=== PATIENT | female | born 1970 | race Caucasian/White ===

== ENCOUNTER 2022-05-02 15:09 | Outpatient (CLI) | payer OTHER, SELFPAY ==
--- NOTE | ~2022-05-02 | MM_ITS ---
EXAMINATION: MM screening jimmy BI w radha HISTORY: Screening mammogram TECHNIQUE: Craniocaudal and mediolateral oblique 3-D tomosynthesis images were obtained and synthetic 2-D images were generated. CAD analysis was submitted and interpreted. COMPARISON: No prior mammogram is available for comparison at this institution. BREAST PARENCHYMAL COMPOSITION: The breasts are almost entirely fatty. FINDINGS: There is no evidence of suspicious mass, calcification, or architectural distortion to sugg est malignancy in either breast. There has been no suspicious interval change. IMPRESSION: 1. No mammographic evidence of malignancy. 2. Recommend routine screening mammography in one year. BI-RADS Category 1: Negative Reviewed, dictated and finalized at location A.
== END 2022-05-02 15:10 | disposition home or self-care (01) ==
PROVIDERS: PCP Nurse Practitioner Family; Visit Provider Obstetrics & Gynecology
DX: Z12.31 Encounter for screening mammogram for malignant neoplasm of breast (principal)
CPT/HCPCS: 77063; 77067

== ENCOUNTER 2024-07-26 09:04 | Outpatient (CLI) | payer OTHER, SELFPAY ==
--- NOTE | ~2024-07-26 | MM_ITS ---
EXAMINATION: MM screening jimmy BI w radha HISTORY: Screening TECHNIQUE: Craniocaudal and mediolateral oblique 3-D tomosynthesis images were obtained and synthetic 2-D images were generated. CAD analysis was submitted and interpreted. COMPARISON: Comparison to multiple prior studies sequentially, with oldest reviewed study dated 01/2022. BREAST PARENCHYMAL COMPOSITION: Dense: The breasts are heterogeneously dense, which may obscure small masses FINDINGS: There is no evidence of suspicious mass, calcification, or architectural distortion to sugg est malignancy in either breast. There has been no suspicious interval change. IMPRESSION: 1. No mammographic evidence of malignancy. 2. Recommend routine screening mammography in one year. BI-RADS Category 1: Negative Reviewed, dictated and finalized at location B.
== END 2024-07-26 09:05 | disposition home or self-care (01) ==
LOC: ANHIMG 09:06
PROVIDERS: PCP Nurse Practitioner Family; Visit Provider Obstetrics & Gynecology
DX: Z12.31 Encounter for screening mammogram for malignant neoplasm of breast (principal)
CPT/HCPCS: 77063; 77067

== ENCOUNTER 2025-09-20 08:11 | Outpatient (CLI) | payer OTHER, SELFPAY ==
--- NOTE | ~2025-09-20 | MM_ITS ---
EXAMINATION: MM screening jimmy BI w radha HISTORY: Screening TECHNIQUE: Craniocaudal and mediolateral oblique 3-D tomosynthesis images were obtained and synthetic 2-D images were generated. CAD analysis was submitted and interpreted. COMPARISON: 07/26/2024 BREAST PARENCHYMAL COMPOSITION: Dense: The breasts are heterogeneously dense, which may obscure small masses FINDINGS: There is no evidence of suspicious mass, calcification, or architectural distortion to suggest malignancy in either breast. There has been no suspicious interval change. IMPRESSION: 1. No mammographic evidence of malignancy. 2. Recommend routine screening mammography in one year. BI-RADS Category 1: Negative Reviewed, dictated and finalized at location O.
--- OUTSIDE RECORDS SUMMARY | 2025-09-20 08:26 | XMS_ITS | Clinical Summary ---
Author Organization [facility] Medical [facility] Building A Address [address] [place] [address] Care Team Providers Care Combine Inspector Name Role Phone Carmel Colindres NP Primary Care Provider [phone] Carmel Colindres NP Unavailable [phone] Jenae Bardales Unavailable [phone] Allergies Active Allergy Reactions Criticality Noted Date Comments Sulfasalazine Rash Medium 08/28/2020 Medications hydrOXYchloro QUINE (PLAQUENIL) 200 mg tabletIndicat ions:Rheumato id Arthritis Take 1 tablet (200 mg total) by mouth 2 (two) times a day 07/14/20 22 Active tiZANidine (ZANAFLEX) 4 mg tablet Take 1 tablet (4 mg total) by mouth nightly at bedtime. 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 05/21/20 22 Active loratadine (CLARITIN) 10 mg tablet Take 1 tablet (10 mg total) by mouth every morning 08/01/20 22 Active triamcinolone (KENALOG) 0.1 % creamIndicati ons:Psoriasis Apply 1 g topically as needed for rash 09/27/20 19 Active inFLIXimab-ab da (Renflexis) 100 mg injection Infuse 70 mL (700 mg total) into a venous catheter every 8 (eight) weeks Active cyanocobalami n (Vitamin B-12) 500 mcg tabletIndicat ions:Preventi on of Vitamin B12 Deficiency Take 1 tablet (500 mcg total) by mouth daily Start post Surgery 90 tablet 3 08/27/20 23 Active magnesium gluconate (Mag-G) 500 mg (27 mg elemental) tablet Take 2 tablets (1,000 mg total) by mouth daily Active ergocalcifero l (VITAMIN D) 50,000 unit capsule Take 1 capsule (50,000 Units total) by mouth daily Active calcium carbonate-vit tang D3 (Oysco 500/D) 1,250mg (500mg elemental) - 5 mcg (200 units) per tablet Take 1 tablet by mouth 3 (three) times a day Active ascorbic acid (VITAMIN C) 250 mg tablet Take 4 tablets (1,000 mg total) by mouth daily Active vitamin E 400 unit capsule Take 0.67 capsules (268 Units total) by mouth daily Active venlafaxine XR (EFFEXOR-XR) 37.5 mg 24 hr capsule Take 1 capsule (37.5 mg total) by mouth daily 06/30/20 24 Active multivitamin tabletIndicat ions:Vitamin Deficiency Prevention Take 2 tablets by mouth daily 60 tablet 11 11/29/20 24 Active norethindrone (MICRONOR) 0.35 mg tablet 12/19/19 25 Active FeroSuL 325 mg (65 mg iron) tablet 03/16/20 25 Active zinc gluconate 50 mg tablet Take 1 tablet (50 mg total) by mouth daily 30 tablet 11 04/07/20 25 026 Active famotidine (PEPCID) 20 mg tablet Take 1 tablet (20 mg total) by mouth 2 (two) times a day 180 tablet 08/26/20 25 025 Active methotrexate 2.5 mg tabletIndicat ions:Rheumato id Arthritis Take 4 tablets (10 mg total) by mouth every 7 days Friday08/02/20 22 025 Discontinued ondansetron (ZOFRAN) 4 mg tabletIndicat ions:Preventi on of Post-Operativ e Nausea and Vomiting Take 1 tablet (4 mg total) by mouth every 6 (six) hours as needed for nausea or vomiting 30 tablet 1 07/29/20 24 025 Discontinued senna-docusat e (PERICOLACE) 8.6-50 mg 1-2 times daily as needed for constipation 60 tablet 1 07/29/20 24 025 Discontinued HYDROcodone-a cetaminophen (NORCO) 5-325 mg per tabletIndicat ions:Pain Take 1 tablet by mouth every 6 (six) hours as needed for pain 20 tablet 03/17/20 25 025 Discontinued d-mannose 500 mg capsule Take 3 tablets by mouth 3 (three) times a day 025 Discontinued famotidine (PEPCID) 20 mg tablet Take 1 tablet (20 mg total) by mouth 2 (two) times a day 180 tablet 04/11/20 25 025 Discontinued(R elba) Hospital, Clinic, or Other Facility Administered Medication Ordered Dose Route Frequency Start Date End Date Status lidocaine (XYLOCAINE) 20 mg/mL (2 %) injection 3 mLIndications:Admini stration of Local Anesthesia 3 mL One-Time Injection 09/06/2025 5 Ended methylPREDNISolone acetate (DEPO-medrol) injection 80 mgIndications:Primar y osteoarthritis of left knee 80 mg intra-artic One-Time Injection 09/06/2025 5 Ended Active Problems Problem Noted Date Diagnosed Date Status post bariatric surgery 03/23/2025 S/P total knee arthroplasty, right 07/28/2024 Assessment & Plan (09/06/2025 1:36 PM CDT): Primary osteoarthritis of right knee 07/13/2024 Encounter for preoperative a ssessment for noncoronary cardiac surgery 06/30/2024 Hyperparathyroidism 06/02/2023 Severe obstructive sleep apnea 04/13/2023 Overview (07/24/2024): - HST (): AHI was 35.1 with O2 yoel of 69% - HST (07/22/24): AHI was 10.8 with O2 yoel of 86% - DME: [facility] Assessment & Plan (07/08/2024 1:10 PM CDT): 1. Chronic, stable 2. Will repeat patient's home sleep test in the setting of 100 lb weight loss after bariatric surgery to determine if she still requires a CPAP Assessment & Plan (06/11/2023 12:00 PM CDT): 1. Chronic, improving 2. She will try out the new mask to see if she tolerates it better and it does not leak Assessment & Plan (04/16/2023 4:43 PM CDT): 1. Chronic, Poorly-controlled 2. Reviewed sleep study results 3. Discussed treatment options 4. Patient decided on CPAP therapy 5. Will place order RBBB 02/24/2023 Psoriatic arthritis 08/09/2022 Hypercalcemia 08/09/2022 Assessment & Plan (02/06/2023 3:53 PM PAYABLE REPRESENTATIVE): Chronic hypercalcemia with high PTH Labs on 01/23/23 Calcium 11.3. PTH 178 GFR 57 Vitamin D of 23 this is most probably primary hyperparathyroidism. Plan: The labs and possible diagnosis reviewed and explained to patient. We will confirm diagnosis with urine collection for calcium I will refer patient for surgical consultation - parathyroidectomy after we obtain test results. stay off vitamin D and any calcium supplements. Patient understands and agrees with above plan. Assessment & Plan (08/09/2022 12:10 PM CDT): Chronic with last level of 11.0 on 08/02/22 Her GFR is low at 32 PTH high at 113 This could be caused by - CKD - effect of HCTZ - dehydration - or hyperparathyroidism. Plan: The labs and possible diagnosis reviewed and explained to patient. I'm not able to pin point hte diagnosis due to multiple factors involved. I suggest that she stops vitamin D and any calcium supplements. She will discuss with her PCP if she can get off HCTZ. Patient will work on weight loss and improve kidney functions Her calcium and kidney functions can be monitored for now. Seropositive rheumatoid arthritis 02/25/2022 Assessment & Plan (07/08/2024 1:10 PM CDT): 1. Chronic, stable 2. Discussed how treatment underlying sleep apnea can improve her arthritis 3. She will continue hydroxychloroquine and infliximab Hypertension 02/03/2016 Overview (03/07/2017): Hypertension Assessment & Plan (06/11/2023 12:00 PM CDT): 1. Chronic, well controlled 2. Discussed her routine use of her CPAP can help improve her blood pressure 3. She will continue lisinopril and furosemide Assessment & Plan (04/16/2023 4:43 PM CDT): - Chronic, Blood pressure is well-controlled - Discussed how routine use of a CPAP machine can help control BP - Continue lisinopril and furosemide Assessment & Plan (03/25/2023 8:44 AM CDT): 1. Chronic, well controlled 2. Discussed how diagnosis of suspected underlying sleep apnea and treatment of it can improve her blood pressure 3. She will continue lisinopril for now Resolved Problems Problem Noted Date Diagnosed Date Resolved Date BMI 39.0-39.9,adult 03/17/2024 03/23/20 25 Morbid (severe) obesity due to excess calories 09/12/2023 12/16/2023 BMI 60.0-69.9, adult 07/17/2023 024 Encounter for preoperative a ssessment for noncoronary cardiac surgery 02/24/2023 04/23/2023 Morbid obesity with BMI of 50.0-59.9, adult 01/23/2023 12/16/2023 Stage 3b chronic kidney disease 08/09/2022 07/15/2023 Assessment & Plan (08/09/2022 12:12 PM CDT): Chronic , multifactorial - continue BP meds per PCP - continue to monitor Class 3 severe obesity due t o excess calories with serious comorbidity and body mass index (BMI) greater than or equal to 70 in adult 08/09/2022 01/23/2023 Assessment & Plan (08/09/2022 12:13 PM CDT): Contributing to her medical problems - patient will be working on getting bariatric surgery in the near future. Encounters Date Type Department Care Team Description 09/16/2025 9:30 AM CDT Therapy [facility] [place] [address] [place] [address] Mireya Trimble PT Presence of right artificial knee joint; Chronic pain of right knee 09/16/2025 Plan of Care Documentation [facility] [place] [address] [place] [address] 09/06/2025 10:15 AM CDT Office Visit [facility] [address] [place] [phone] Jenae Bardales PA Primary osteoarthritis of left knee (Primary Dx); Patellofemoral arthralgia of right knee; S/P total knee arthroplasty, right; Chronic pain of right knee 07/01/2025 11:00 AM CDT Office Visit [facility] at [address] [place] [id number] Michelle Arenas MD RBBB (Primary Dx); Primary hypertension; BMI 60.0-69.9, adult (HCC) from Last 3 Months Immunizations Immunization Administration Dates Next Due Tetanus toxoid, adsorbed 06/30/2007 Surgical History Surgery Date Site/Laterality Comments TONSILLECTOMY WISDOM TOOTH EXTRACTION UPPER GASTROINTESTINAL ENDOSCOPY 01/29/2023 - 02/28/2023 THYROIDECTOMY, PARTIAL 07/01/2023 - 07/31/2023 PARATHYROIDECTOMY 07/01/2023 - 07/31/2023 GASTROPLASTY DUODENAL SWITCH with removal of gallbladder and hernia Medical History Medical History Date Comments Hypertension Anemia 2019(?) Arthritis 2019(?) Female infertility 1998 Joint pain 1992 Chronic kidney disease 2020(?) Low back pain 2007(?) Morbid obesity (HCC) 1995(?) Obesity 1985 Urinary incontinence 2019(?) Vitamin D deficiency 2020(?) Hyperparathyroidism Sleep apnea Motion sickness Cancer (HCC) Thyroid cancer Anxiety RA (rheumatoid arthritis) Seizure (HCC) parient stated h ad 1 when she was 5 Family History Medical History Relation Name Comments Asthma Father Cecilio Asthma; COPD Father Cecilio Hypertension Father Cecilio Hypertension; Obesity Father Cecilio Other Father Cecilio Alive and well; Stroke Father Cecilio Sleep apnea Father's Brother Isacc Depression Maternal Grandmother Gisele Diabetes Maternal Grandmother Gisele Liver disease Mother Latonya Liver disease; Obesity Mother Latonya Other Mother Latonya autoimmune dise ase; Cause of : autoimmune disease Mental illness Mother's Sister Sumi Depression Paternal Grandfather Flash Stroke Paternal Grandfather Flash Cancer Paternal Grandmother Pascale Anesthesia problems Sister Maureen delayed emergence - no ICU admission Obesity Sister Maureen Sleep apnea Sister Maureen Ramirez Hypertension Neg Hx Malig Hyperthermia Neg Hx Pseudochol deficiency Neg Hx Relation Name Status Comments Father Cecilio Barone Father's Brother Isacc Maternal Grandmother Gisele Mother Latonya (Age 62) Mother's Sister Sumi Paternal Grandfather Flash Paternal Grandmother Pascale Reddy Social History Tobacco Use Types Packs/Day Years Used Date Smoking Tobacco: Former Cigarettes Q uit: 1999 Passive Smoke Exposure: Past Smokeless Tobacco: Never Tobacco Cessation:Counseling Given: Not Answered Alcohol Use Standard Drinks/Week Comments No 0 (1 standard drink = 0.6 oz pur e alcohol) [facility] Utilities Answer Date Recorded In the past 12 months has e [employer], gas, oil, or water [employer] threatened to shut off services in your home? No 07/29/2024 Humiliation, Afraid, Rape, and Kick questionnair e Answer Date Recorded Within the last year, have y ou been afraid of your partner or ex-partner? No 07/29/2024 Within the last year, have y ou been humiliated or emotionally abused in other ways by your partner or ex-partner? No Within the last year, have y ou been kicked, hit, slapped, or otherwise physically hurt by your partner or ex-partner? No 07/29/2024 Within the last year, have y ou been raped or forced to have any kind of sexual activity by your partner or ex-partner? No 07/29/2024 Social Connection and Isolation Panel Answer Date Recorded In a typical week, how many times do you talk on the phone with family, friends, or neighbors? More than three times a week 07/29/2024 How often do you get togethe r with friends or relatives? More than three times a week 07/29/2024 How often do you attend [facility] or [facility] services? More than 4 times per year 07/29/2024 Do you belong to any clubs o r organizations such as mu-ism groups, unions, fraternal or athletic groups, or school groups? Yes 07/29/2024 How often do you attend meet ings of the clubs or organizations you belong to? More than 4 times per year 07/29/2024 Are you , , di vorced, , never , or living with a partner? 07/29/2024 AUDIT-C Answer Date Recorded Q1: How often do you have a drink containing alc ohol? Monthly or less 03/23/2025 Q2: How many drinks containi ng alcohol do you have on a typical day when you are drinking? 1 or 2 03/23/2025 Q3: How often do you have si x or more drinks on one occasion? Never 03/23/2025 Overall Financial Resource Strain (CARDIA) Answe r Date Recorded How hard is it for you to pa y for the very basics like food, housing, medical care, and heating? Not hard at all 07/29/2024 PHQ-2 Answer Date Recorded PHQ-2 Total Score (If total score is 3 or more points, staff should administer the PHQ-9) 1 07/29/2024 [facility] - Occupational Stress Questionnaire Answer Date Recorded Do you feel stress - tense, restless, nervous, or anxious, or unable to sleep at night because your mind is troubled all the time - these days? Only a little 07/29/2024 Exercise Vital Sign Answer Date Recorde d On average, how many days pe r week do you engage in moderate to strenuous exercise (like a brisk walk)? 2 days 07/29/2024 On average, how many minutes do you engage in exercise at this level? 20 min 07/29/2024 Hunger Vital Sign Answer Date Recorded Within the past 12 months, y ou worried that your food would run out before you got the money to buy more. Never true 07/29/20 24 Within the past 12 months, t he food you bought just didn't last and you didn't have money to get more. Never true 07/29/2024 PRAPARE - Transportation Answer Date Re corded In the past 12 months, has l ack of transportation kept you from medical appointments or from getting medications? No 07/02 In the past 12 months, has l ack of transportation kept you from meetings, work, or from getting things needed for daily living? No 07/29/2024 PHQ-9 Answer Date Recorded PHQ-9 Total Score 1 07/29/2024 Housing Stability Vital Sign Answer Josh e Recorded In the last 12 months, was t here a time when you were not able to pay the mortgage or rent on time? No 07/29/2024 In the past 12 months, how m any times have you moved where you were living? 0 07/29/2024 At any time in the past 12 m [facility], were you homeless or living in a mcc (including now)? No 07/29/2024 Personal Safety Answer Date Recorded Have you ever been in or are you currently in a harmful physical or emotional relationship or is someone making you feel afraid or unsafe? Denies 07/28/2024 Comments No Sex and Gender Information Value Date Recorded Sex Assigned at Not on file Legal Sex Female 1:37 AM PAYABLE REPRESENTATIVE Gender Identity Not on file Sexual Orientation Not on file Obstetrics History Last Filed Vital Signs Vital Sign Reading Time Taken Comments Blood Pressure 131/80 09/06/2025 10:24 AM CDT Pulse 55 09/06/2025 10:24 AM CDT Temperature 36.8 C (98.3 F) 03/25/2025 12:49 PM CDT Respiratory Rate 18 03/25/2025 12:49 PM CDT Oxygen Saturation 96% 03/25/2025 12:49 PM CDT Inhaled Oxygen Concentration - - Weight 84.8 kg (187 lb) 09/06/2025 10:24 AM CDT Height 165.1 cm (5' 5) 09/06/2025 10:24 AM CDT Body Mass Index 31.12 09/06/2025 10:24 AM CDT Plan of Treatment Health Maintenance Due Date Last Done Comments Cervical Cancer Screening 1968 Colon Cancer Screening-Colonoscopy 1968 Hepatitis C Screening 1968 Hepatitis B Screening 1986 Regular Well Visit/Exam 18-64 1986 Pneumococcal vaccine <65 (1 of 2 - PCV) 1987 Breast Cancer Screening-Mammogram 04/15/2020 019 Depression Screening 07/29/2025 07/29/2024 Covid-19 Vaccine (2024-2 6 season) 2025 05/04/2022, 11/02/2021, 02/16/2021, Additional history exists Influenza Vaccine (#1) 2025 , 08/28/2023, 11/11/2022, Additional history exists DTaP/Tdap/Td Vaccine (4 - Td or Tdap) 07/20/2029 07/20/2019, 06/30/2007, 05/06/2007 Zoster Vaccine Completed 07/17/2022, 05/04/2022 Medical Devices Implanted Type Area Abatement Worker Device Identifier Shelf Expiration Date Model / Serial / Lot [employer] Attune Cruciate Retain Cementless Knee Right 5 Component Femoral [id number] - [id number] Implanted:Qty: 1 on 07/28/2024 by Ney Lozoya MD at [facility] Right: Knee [employer] [id number] 11/30/2032 [id number] / / [id number] [employer] Attune Fb Tib Base Sz 5 Por [id number] - [id number] Implanted:Qty: 1 on 07/28/2024 by Ney Lozoya MD at [facility] Right: Knee [employer] [id number] 05/30/2034 [id number] / / [id number] [employer] Insert Tibial Knee Fixed Rm Posterior Stabilized Attune 12mm Size 5 Polyethylene [id number] - [id number] Implanted:Qty: 1 on 07/28/2024 by Ney Lozoya MD at [facility] Right: Knee [employer] [id number] 08/30/2030 [id number] / / [id number] Procedures Procedure Name Priority Date/Time Associated Diagnosis Comments TX ARTHROCENTESIS ASPIR&/INJ MAJOR JT/BURSA W/O US Routine 09/06/2025 10:15 AM CDT Primary osteoarthritis of left knee from Last 3 Months Results * TX ARTHROCENTESIS ASPIR&/INJ MAJOR JT/BURSA W/O US (09/06/2025 10:15 AM CDT) Jenae Flores PA - 09/06/2025 10:15 AM CDT Jenae Bardales PA 09/06/2025 1:36 PM Large Joint (Hip, Knee, Shoulder) Injection: L knee Performed by: Jenae Bardales PA Authorized by: Jenae Bardales PA Large Joint Injection/Aspiration: Consent Given by: Patient Site marked: the procedure site was marked Verbal consent obtained: Yes Supporting Documentation: Indications: Pain Procedure Details: Location: Knee Site: L knee Prep: patient was prepped and draped in usual sterile fashion Needle Size: 22 G Approach: Anterolateral Ultrasound guided: No Fluroscopic guidance: No Medications: 3 mL lidocaine 20 mg/mL (2 %); 80 mg methylPREDNISolone acetate 80 mg/mL Patient tolerance: Patient tolerated the procedure well with no immediate complications Jenae YADAV IN CLINIC/BEDSIDE ORDER ALON Final Result from Last 3 Months Insurance [facility] Advance Directives For more information, please contact: [phone] * Full Code (Latest Code Status on File) Date Activated Date Inactivated Comments 07/28/2024 1:53 PM 07/29/2024 7:07 PM * Full Code Date Activated Date Inactivated Comments 09/12/2023 3:33 PM 09/14/2023 5:28 PM * Full Code Date Activated Date Inactivated Comments 07/23/2023 2:55 PM 07/25/2023 5:45 PM Care Teams Combine Inspector Relationship Specialty Start Date End Date Carmel Colindres NP [address] [place] [address] PCP - General Nurse Practitioner 02/18/23 Carmel Colindres NP [address] [place] [address] Nurse Practitioner 02/18/23 Jenae Bardales PA [address] [facility] [address] [address] Physician Weatherization Administrator Orthopedic Surgery 07/29/24
--- OUTSIDE RECORDS SUMMARY | 2025-09-20 08:26 | XMS_ITS | Data Portability ---
[facility] Address [address] [place] [address] Care Team Providers Care Infrastructure Analyst Name Role Phone CARMEL HILTON Primary Care Provider Unavailabl e Assessment No assessment recorded. 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-C Not available Not available Not available Lab urinaly sis, dipstic k 2023 024 In-Office Order, Internal Use Only DO Not Attach Compendium DO Not Attach Compendium, Do Not Delete/merge, [id number] 11/16/2024 12:08:35 culture , urine 2023 024 [facility], [address] [facility] [place], [address], 11/19/2024 03:08:[address] referra l 2024 025 nestor Clement MD, 1 [facility] , [address], [place], [address], 08/10/2025 11:15:59 plastic surgeon referra l 2023 024 nestor Friend MD, [address] [place], [address], 03/21/2025 14:48:08 Procedures None recorde d. Surgeries None recorde d. Imaging None recorde d. Medication Orders nidhi godwin ER 37.5 mg capsule ,extend ed release 24 hr 2024 025 [facility][id number], [address], [place], [place], [id number], 06/15/2025 15:54:01 venlafa xine ER 37.5 mg capsule ,extend ed release 24 hr [address] [facility][id number], [address], [place], [place], [id number], 02/02/2025 10:30:46 Macrobi d 100 mg capsule 2023 025 [facility] #[id number], [address], [place], [place], [id number], 06/30/2025 05:02:02 venlafa xine ER 37.5 mg capsule ,extend ed release 24 hr [address] [facility] #[id number], [address], [place], [place], [id number], 10/26/2024 09:44:38 Patient TargetsNo targets recorded. Patient Instructions Encounter Date Encounter Id Patient Instructions Last Modified By Organization Details Last Modified Time 10/26/2024 [id number] A healthy lifestyle: care instructions Not available 10/26/2024 09:44:30 low sodium diet (2,000 milligram): care instructions Not available 10/26/2024 09:44:30 Continue to take medications as prescribed, do not abruptly stop them. Try walking or deep breathing exercises when feeling anxious. Stress management recommended-posit hilary imagery. Increase activity to 30 min a day most days. Call or return if problem persists or worsens. Not available 10/26/2024 09:43:58 f/u 3 months DWP barriers to care: none Not available 10/26/2024 09:44:15 11/16/2024 [id number] influenza (flu) vaccine: care instructions Not available 11/16/2024 12:10:15 painful urinatio n (dysuria): care instructions Not available 11/16/2024 12:06:33 Take all antibiotics as prescribed. Do not use bubble baths. Wipe from front to back. Take 500 mg Vitamin C twice a day or try OTC cranberry pills or 100% cranberry juice. Increase fluids. Not available 11/16/2024 12:07:02 follow up as needed Not available 11/16/2024 12:07:19 01/31/2025 [id number] A healthy lifestyle: care instructions Not available 01/31/2025 09:25:57 low sodium diet (2,000 milligram): care instructions Not available 01/31/2025 09:25:57 Continue to take medications as prescribed, do not abruptly stop them. Try walking or deep breathing exercises when feeling anxious. Stress management recommended-posit hilary imagery. Increase activity to 30 min a day most days. Call or return if problem persists or worsens. Not available 01/31/2025 09:13:54 f/u 4 months DWP barriers to care: none Not available 01/31/2025 09:25:30 06/15/2025 [id number] low sodium diet (2,000 milligram): care instructions Not available 06/15/2025 15:53:55 A healthy lifestyle: care instructions Not available 06/15/2025 15:53:55 Continue to take medications as prescribed, do not abruptly stop them. Try walking or deep breathing exercises when feeling anxious. Stress management recommended-posit hilary imagery. Increase activity to 30 min a day most days. Call or return if problem persists or worsens. Not available 06/15/2025 15:19:38 f/u 4 months DWP barriers to care: none Not available 06/15/2025 15:19:40 Reason for Referral Plastic Surgeon Referral for Mass of lower limb Referring Physician: Carmel Hilton, Family Medicine, Encounter Date: 10/26/2024 Urologist Referral for Spasm of urinary bladder Referring Physician: Carmel Hilton, Family Medicine, Encounter Date: 06/15/2025 Results Created Date Observation Date Name Description Value Unit Range Abnormal Flag Note LastModifiedBy Organization Detail LastModifiedTime 11/16/20 24 11/19/2024 URINE CULTU RE,CO MPREH ENSIV E urine culture,comp rehensive FINAL REPORT abnormal Not Available [facility] ([facility]) [address] [facility], [place], [address], 11/19/2024 03:08:30 11/16/20 24 11/19/2024 URINE CULTU RE,CO MPREH ENSIV E result 1 KLEBSI SHARON PNEUMO NIAE abnormal Cefaz alexandre <=4 ug/mL Cefaz alexandre with an JAN <=16 predi cts susce ptibi lity to the oral agent s cefac zoraida, cefdi nuzhat, cefpo doxim e, cefpr ozil, cefur oxime , cepha lexin , and lorac arbef when used for thera py of uncom plica larissa urina ry tract infec tions due to E. coli, Klebs iella pneum oniae , and Prote us mirab ilis. 8,000 Colon ies/m L Not Available [facility] ([facility]) [address] [facility], [place], [address], 11/19/2024 03:08:30 11/16/20 24 11/19/2024 URINE CULTU RE,CO MPREH ENSIV E antimicrobia l susceptibili ty COMMEN T S = Susce ptibl e; I = Inter media te; R = Resis tant P = Posit hilary; N = Negat hilary MICS are expre ssed in micro grams per mL Antib iotic RSLT# 1 RSLT# 2 RSLT# 3 RSLT# 4 Amoxi cilli n/Cla vulan ic Acid S Ampic illin R Cefep nicolle S Ceftr iaxon e S Cefur oxime S Cipro floxa chaya S Ertap enem S Genta micin S Imipe nem S Levof loxac in S Merop enem S Nitro furan toin R Piper acill in/Ta zobac tse S Tetra cycli ne S Tobra mycin S Trime thopr im/Pressley lfa S Not Available [facility] ([facility]) [address] [facility], [place], [address], 11/19/2024 03:08:30 11/16/20 24 11/16/2024 urina lysis , dipst ick Leukocytes Small Not Available In-Offi ce Order Internal Use Only DO Not Attach Compendium DO Not Attach Compendium, Do Not Delete/merge, [id number] 11/16/2024 11:42:55 11/16/20 24 11/16/2024 urina lysis , dipst ick Nitrite negati ve Not Available In-Office Order Internal Use Only DO Not Attach Compendium DO Not Attach Compendium, Do Not Delete/merge, 11/16/2024 11:42:55 11/16/20 24 11/16/2024 urina lysis , dipst ick Urobilinogen .2 Not Available In-Of fice Order Internal Use Only DO Not Attach Compendium DO Not Attach Compendium, Do Not Delete/merge, 11/16/2024 11:42:55 11/16/20 24 11/16/2024 urina lysis , dipst ick Protein Negati ve Not Available In-Office Order Internal Use Only DO Not Attach Compendium DO Not Attach Compendium, Do Not Delete/merge, 11/16/2024 11:42:55 11/16/20 24 11/16/2024 urina lysis , dipst ick pH 5.5 Not Available In-Office Order Internal Use Only DO Not Attach Compendium DO Not Attach Compendium, Do Not Delete/merge, 11/16/2024 11:42:55 11/16/20 24 11/16/2024 urina lysis , dipst ick Blood Negati ve Not Available In-Office Order Internal Use Only DO Not Attach Compendium DO Not Attach Compendium, Do Not Delete/merge, [id number] 11/16/2024 11:42:55 11/16/20 24 11/16/2024 urina lysis , dipst ick Specific [place] 1.010 Not Available In-Off ice Order Internal Use Only DO Not Attach Compendium DO Not Attach Compendium, Do Not Delete/merge, [id number] 11/16/2024 11:42:55 11/16/20 24 11/16/2024 urina lysis , dipst ick Ketone Negati ve Not Available In-Office Order Internal Use Only DO Not Attach Compendium DO Not Attach Compendium, Do Not Delete/merge, [id number] 11/16/2024 11:42:55 11/16/20 24 11/16/2024 urina lysis , dipst ick Bilirubin Negati ve Not Available In-Office Order Internal Use Only DO Not Attach Compendium DO Not Attach Compendium, Do Not Delete/merge, [facility] 11/16/2024 11:42:55 11/16/20 24 11/16/2024 urina lysis , dipst ick Glucose Negati ve Not Available In-Office Order Internal Use Only DO Not Attach Compendium DO Not Attach Compendium, Do Not Delete/merge, [facility] 11/16/2024 11:42:55 11/16/20 24 11/16/2024 urina lysis , dipst ick Appearance Clear Not Available In-Offi ce Order Internal Use Only DO Not Attach Compendium DO Not Attach Compendium, Do Not Delete/merge, [facility] 11/16/2024 11:42:55 11/16/20 24 11/16/2024 urina lysis , dipst ick Color Yellow Not Available In-Office Order Internal Use Only DO Not Attach Compendium DO Not Attach Compendium, Do Not Delete/merge, [facility] 11/16/2024 11:42:55 11/18/20 24 11/19/2024 C react hilary prote in [Mass /volu me] in Serum or Plasm a C-reactive protein 9.9 mg/L high: 8mg/L high C-Katiuska ctive Prote in 9.9 (H) <8.0 mg/L [facility] Not Available Not Available 01/24/2025 09:26:22 11/18/20 24 11/19/2024 C react hilary prote in [Mass /volu me] in Serum or Plasm a interpretati on and review of laboratory results Abnorm al Not Available Not Available 09:26:22 11/18/20 24 11/19/2024 Eryth rocyt e sedim entat ion rate by Weste rgren metho d erythrocyte sedimentatio n rate westergren 6 mm/h text: < or = 30 Eryth rocyt e Sedim entat ion Rate Weste rgren 6 < OR = 30 mm/h [facility] Not Available Not Available 01/24/2025 09:26:22 11/18/20 24 11/19/2024 CBC W Auto Diffe renti al panel - Blood white blood cell count 4.3 text: 3.8 - 10.8 thousa nd/uL White Blood Cell Count 4.3 3.8 - 10.8 Thous and/u L [facility] Not Available Not Available 01/24/2025 09:26:21 11/18/20 24 11/19/2024 CBC W Auto Diffe renti al panel - Blood RBC 4.52 text: 3.80 - 5.10 millio n/uL RBC 4.52 3.80 - 5.10 Adriana on/uL [facility] Not Available Not Available 01/24/2025 09:26:21 11/18/20 24 11/19/2024 CBC W Auto Diffe renti al panel - Blood hemoglobin 13.9 g/dL low: 11.7g/ dLhigh : 15.5g/ dL Hemog lobin 13.9 11.7 - 15.5 g/dL [facility] Not Available Not Available 01/24/2025 09:26:21 11/18/20 24 11/19/2024 CBC W Auto Diffe renti al panel - Blood hematocrit 41.8 % low: 35%hig h: 45% Hemat ocrit 41.8 35.0 - 45.0 % [facility] Not Available Not Available 01/24/2025 09:26:21 11/18/20 24 11/19/2024 CBC W Auto Diffe renti al panel - Blood MCV 92.5 fL low: 80fLhi gh: 100fL MCV 92.5 80.0 - 100.0 fL [facility] Not Available Not Available 01/24/2025 09:26:21 11/18/20 24 11/19/2024 CBC W Auto Diffe renti al panel - Blood MCH 30.8 pg low: 27pghi gh: 33pg MCH 30.8 27.0 - 33.0 pg [facility] Not Available Not Available 01/24/2025 09:26:21 11/18/20 24 11/19/2024 CBC W Auto Diffe renti al panel - Blood MCHC 33.3 g/dL low: 32g/dL high: 36g/dL MCHC 33.3 32.0 - 36.0 g/dL [facility] Not Available Not Available 01/24/2025 09:26:21 11/18/20 24 11/19/2024 CBC W Auto Diffe renti al panel - Blood RDW 12 % low: 11%hig h: 15% RDW 12.0 11.0 - 15.0 % [facility] Not Available Not Available 01/24/2025 09:26:21 11/18/20 24 11/19/2024 CBC W Auto Diffe renti al panel - Blood platelet count 153 text: 140 - 400 thousa nd/uL Plate let Count 153 140 - 400 Thous and/u L [facility] Not Available Not Available 01/24/2025 09:26:21 11/18/20 24 11/19/2024 CBC W Auto Diffe renti al panel - Blood MPV 12.2 fL low: 7.5fLh igh: 12.5fL MPV 12.2 7.5 - 12.5 fL [facility] Not Available Not Available 01/24/2025 09:26:21 11/18/20 24 11/19/2024 CBC W Auto Diffe renti al panel - Blood neutrophil absolute 2180 text: 1500 - 7800 cells/ uL Neutr ophil Absol [place] 2180 1500 - 7800 cells /uL [facility] Not Available Not Available 01/24/2025 09:26:21 11/18/20 24 11/19/2024 CBC W Auto Diffe renti al panel - Blood lymphocytes absolute 1436 text: 850 - 3900 cells/ uL Lymph ocyte s Absol [place] 1436 850 - 3900 cells /uL [facility] Not Available Not Available 01/24/2025 09:26:21 11/18/20 24 11/19/2024 CBC W Auto Diffe renti al panel - Blood absolute monocytes 533 text: 200 - 950 cells/ uL Absol [place] Monoc ytes 533 200 - 950 cells /uL [facility] Not Available Not Available 01/24/2025 09:26:21 11/18/20 24 11/19/2024 CBC W Auto Diffe renti al panel - Blood eosinophils absolute 120 text: 15 - 500 cells/ uL Eosin ophil s Absol [place] 120 15 - 500 cells /uL [facility] Not Available Not Available 01/24/2025 09:26:21 11/18/20 24 11/19/2024 CBC W Auto Diffe renti al panel - Blood basophils absolute 30 text: 0 - 200 cells/ uL Basop hils Absol [place] 30 0 - 200 cells /uL [facility] Not Available Not Available 01/24/2025 09:26:21 11/18/20 24 11/19/2024 CBC W Auto Diffe renti al panel - Blood granulocytes % 50.7 % Granu locyt es % 50.7 % [facility] Not Available Not Available 01/24/2025 09:26:21 11/18/20 24 11/19/2024 CBC W Auto Diffe renti al panel - Blood lymphocytes % 33.4 % Lymph ocyte s % 33.4 % [facility] Not Available Not Available 01/24/2025 09:26:21 11/18/20 24 11/19/2024 CBC W Auto Diffe renti al panel - Blood monocytes % 12.4 % Monoc ytes % 12.4 % [facility] Not Available Not Available 01/24/2025 09:26:21 11/18/20 24 11/19/2024 CBC W Auto Diffe renti al panel - Blood eosinophils % 2.8 % Eosin ophil s % 2.8 % [facility] Not Available Not Available 01/24/2025 09:26:21 11/18/20 24 11/19/2024 CBC W Auto Diffe renti al panel - Blood basophils % 0.7 % Basop hils % 0.7 % [facility] Not Available Not Available 01/24/2025 09:26:21 11/18/20 24 11/19/2024 Compr ehens hilary metab olic 1999 panel - Serum or Plasm a glucose 84 mg/dL low: 65mg/d Lhigh: 99mg/d L Gluco se 84 65 - 99 mg/dL [facility] Not Available Not Available 01/24/2025 09:26:21 11/18/20 24 11/19/2024 Compr ehens hilary metab olic 2000 panel - Serum or Plasm a BUN 20 mg/dL low: 7mg/dL high: 25mg/d L BUN 20 7 - 25 mg/dL [facility] Not Available Not Available 01/24/2025 09:26:21 11/18/20 24 11/19/2024 Compr ehens hilary metab olic 1999 panel - Serum or Plasm a creatinine 0.74 mg/dL low: 0.5mg/ dLhigh : 1.03mg /dL Creat inine 0.74 0.50 - 1.03 mg/dL [facility] Not Available Not Available 01/24/2025 09:26:21 11/18/20 24 11/19/2024 Compr ehens hilary metab olic 1999 panel - Serum or Plasm a glomerular filtration rate/1.73 sq M.predicted [volume rate/area] in serum, plasma or blood by cystatin C-based formula 95 text: > or = 60 mL/min /1.73m 2 eGFR by Cysta tin C 95 > OR = 60 mL/mi n/1.7 3m2 [facility] Not Available Not Available 01/24/2025 09:26:21 11/18/20 24 11/19/2024 Compr ehens hilary metab olic 2000 panel - Serum or Plasm a BUN/creatini ne ratio SEE NOTE: text: 6 - 22 (calc) BUN/C reati nine Ratio SEE NOTE: 6 - 22 (calc ) [facility] Not Available Not Available 01/24/2025 09:26:21 11/18/20 24 11/19/2024 Compr ehens hilary metab olic 1999 panel - Serum or Plasm a sodium 140 mmol/ L low: 135mmo l/Lhig h: 146mmo l/L Sodiu m 140 135 - 146 mmol/ L [facility] Not Available Not Available 01/24/2025 09:26:21 11/18/20 24 11/19/2024 Compr ehens hilary metab olic 2000 panel - Serum or Plasm a potassium 4.1 mmol/ L low: 3.5mmo l/Lhig h: 5.3mmo l/L Potas sium 4.1 3.5 - 5.3 mmol/ L [facility] Not Available Not Available 01/24/2025 09:26:21 11/18/20 24 11/19/2024 Compr ehens hilary metab olic 2000 panel - Serum or Plasm a chloride 103 mmol/ L low: 98mmol /Lhigh : 110mmo l/L Chlor conchis 103 98 - 110 mmol/ L [facility] Not Available Not Available 01/24/2025 09:26:21 11/18/20 24 11/19/2024 [facility] 1999 panel - Serum or Plasm a CO2 29 mmol/ L low: 20mmol /Lhigh : 32mmol /L CO2 29 20 - 32 mmol/ L [facility] Not Available Not Available 01/24/2025 09:26:21 11/18/20 24 11/19/2024 [facility] 1999 panel - Serum or Plasm a calcium 8.8 mg/dL low: 8.6mg/ dLhigh : 10.4mg /dL Calci um 8.8 8.6 - 10.4 mg/dL [facility] Not Available Not Available 01/24/2025 09:26:21 11/18/20 24 11/19/2024 [facility] 1999 panel - Serum or Plasm a protein total 6.4 g/dL low: 6.1g/d Lhigh: 8.1g/d L Prote in Total 6.4 6.1 - 8.1 g/dL [facility] Not Available Not Available 01/24/2025 09:26:21 11/18/20 24 11/19/2024 [facility] 1999 panel - Serum or Plasm a albumin 4 g/dL low: 3.6g/d Lhigh: 5.1g/d L Album in 4.0 3.6 - 5.1 g/dL [facility] Not Available Not Available 01/24/2025 09:26:21 11/18/20 24 11/19/2024 [facility] 1999 panel - Serum or Plasm a globulin total 2.4 text: 1.9 - 3.7 g/dL (calc) Globu maria Total 2.4 1.9 - 3.7 g/dL (calc ) [facility] Not Available Not Available 01/24/2025 09:26:21 11/18/20 24 11/19/2024 [place] [id number] panel - Serum or Plasm a albumin/glob ulin ratio 1.7 text: 1.0 - 2.5 (calc) Album in/Gl obuli n Ratio 1.7 1.0 - 2.5 (calc ) [facility] Not Available Not Available 01/24/2025 09:26:21 11/18/20 24 11/19/2024 Compr ehens hilary metab olic 1999 panel - Serum or Plasm a bilirubin total 0.4 mg/dL low: 0.2mg/ dLhigh : 1.2mg/ dL Bilir ubin Total 0.4 0.2 - 1.2 mg/dL [facility] Not Available Not Available 01/24/2025 09:26:21 11/18/20 24 11/19/2024 Compr ehens hilary metab olic 1999 panel - Serum or Plasm a alkaline phosphatase 63 U/L low: 37U/Lh igh: 153U/L Alkal ine Phosp hatas e 63 37 - 153 U/L [facility] Not Available Not Available 01/24/2025 09:26:21 11/18/20 24 11/19/2024 Compr ehens hilary metab olic 1999 panel - Serum or Plasm a AST 20 U/L low: 10U/Lh igh: 35U/L AST 20 10 - 35 U/L [facility] Not Available Not Available 01/24/2025 09:26:21 11/18/20 24 11/19/2024 Compr ehens hilary metab olic 1999 panel - Serum or Plasm a ALT 21 U/L low: 6U/Lhi gh: 29U/L ALT 21 6 - 29 U/L [facility] Not Available Not Available 01/24/2025 09:26:21 12/29/19 25 12/30/2024 Urate [Mass /volu me] in Serum or Plasm a uric acid 3.7 mg/dL low: 2.5mg/ dLhigh : 7mg/dL Uric Acid 3.7 2.5 - 7.0 mg/dL [facility] Not Available Not Available 01/24/2025 09:26:22 03/02/20 25 03/03/2025 C react hilary prote in [Mass /volu me] in Serum or Plasm a C-reactive protein <1 low: 0mg/Lh igh: 10mg/L C-Katiuska ctive Prote in <1 0 - 10 mg/L [facility] INSUR ANCE BILL Not Available Not Available 03/21/2025 14:57:28 03/02/20 25 03/03/2025 C react ihlary prote in [Mass /volu me] in Serum or Plasm a Unknown Analyte Perfor med at: 01 - [facility] [address] [place], [place] [id number] [facility] or: Shelley miller PhD, Not Available Not Available 14:57:28 03/02/20 25 03/03/2025 Eryth rocyt e sedim entat ion rate [[place]] in Red Blood Cells by Stephanie myricko d erythrocyte sedimentatio n rate westergren 2 text: 0 - 40 mm/HR Eryth rocyt e Sedim entat ion Rate Weste rgren 2 0 - 40 mm/hr [facility] INSUR ANCE BILL Not Available Not Available 03/21/2025 14:57:28 03/02/20 25 03/03/2025 Eryth rocyt e sedim entat ion rate [[place]] in Red Blood Cells by Stephanie myricko aniyah Unknown Analyte Perfor med at: 01 - [facility] [address] [id number] [facility] or: Shelley miller PhD, Not Available Not Available 14:57:28 03/02/20 25 03/03/2025 CBC W Auto Diffe renti al panel - Blood WBC 6.3 text: 3.4 - 10.8 x10e3/ uL WBC 6.3 3.4 - 10.8 x10E3 /uL [facility] INSUR ANCE BILL Not Available Not Available 03/21/2025 14:57:28 03/02/20 25 03/03/2025 CBC W Auto Diffe renti al panel - Blood RBC 4.3 text: 3.77 - 5.28 x10e6/ uL RBC 4.30 3.77 - 5.28 x10E6 /uL [facility] INSUR ANCE BILL Not Available Not Available 03/21/2025 14:57:28 03/02/20 25 03/03/2025 CBC W Auto Diffe renti al panel - Blood hemoglobin 13.1 g/dL low: 11.1g/ dLhigh : 15.9g/ dL Hemog lobin 13.1 11.1 - 15.9 g/dL [facility] INSUR ANCE BILL Not Available Not Available 03/21/2025 14:57:28 03/02/20 25 03/03/2025 CBC W Auto Diffe renti al panel - Blood hematocrit 39.8 % low: 34%hig h: 46.6% Hemat ocrit 39.8 34.0 - 46.6 % [facility] INSUR ANCE BILL Not Available Not Available 03/21/2025 14:57:28 03/02/20 25 03/03/2025 CBC W Auto Diffe renti al panel - Blood MCV 93 fL low: 79fLhi gh: 97fL MCV 93 79 - 97 fL [facility] INSUR ANCE BILL Not Available Not Available 03/21/2025 14:57:28 03/02/20 25 03/03/2025 CBC W Auto Diffe renti al panel - Blood MCH 30.5 pg low: 26.6pg high: 33pg MCH 30.5 26.6 - 33.0 pg [facility] INSUR ANCE BILL Not Available Not Available 03/21/2025 14:57:28 03/02/20 25 03/03/2025 CBC W Auto Diffe renti al panel - Blood MCHC 32.9 g/dL low: 31.5g/ dLhigh : 35.7g/ dL MCHC 32.9 31.5 - 35.7 g/dL [facility] INSUR ANCE BILL Not Available Not Available 03/21/2025 14:57:28 03/02/20 25 03/03/2025 CBC W Auto Diffe renti al panel - Blood RDW 12 % low: 11.7%h igh: 15.4% RDW 12.0 11.7 - 15.4 % [facility] INSUR ANCE BILL Not Available Not Available 03/21/2025 14:57:28 03/02/20 25 03/03/2025 CBC W Auto Diffe renti al panel - Blood platelet count 163 text: 150 - 450 x10e3/ uL Plate let Count 163 150 - 450 x10E3 /uL [facility] INSUR ANCE BILL Not Available Not Available 03/21/2025 14:57:28 03/02/20 25 03/03/2025 CBC W Auto Diffe renti al panel - Blood granulocytes % 60 % text: not estab. Granu locyt es % 60 Not Estab . % [facility] INSUR ANCE BILL Not Available Not Available 03/21/2025 14:57:28 03/02/20 25 03/03/2025 CBC W Auto Diffe renti al panel - Blood lymphocytes % 26 % text: not estab. Lymph ocyte s % 26 Not Estab . % [facility] INSUR ANCE BILL Not Available Not Available 03/21/2025 14:57:28 03/02/20 25 03/03/2025 CBC W Auto Diffe renti al panel - Blood monocytes % 10 % text: not estab. Monoc ytes % 10 Not Estab . % [facility] INSUR ANCE BILL Not Available Not Available 03/21/2025 14:57:28 03/02/20 25 03/03/2025 CBC W Auto Diffe renti al panel - Blood eosinophils % 3 % text: not estab. Eosin ophil s % 3 Not Estab . % [facility] INSUR ANCE BILL Not Available Not Available 03/21/2025 14:57:28 03/02/20 25 03/03/2025 CBC W Auto Diffe renti al panel - Blood basophils % 1 % text: not estab. Basop hils % 1 Not Estab . % [facility] INSUR ANCE BILL Not Available Not Available 03/21/2025 14:57:28 03/02/20 25 03/03/2025 CBC W Auto Diffe renti al panel - Blood granulocytes absolute 3.8 text: 1.4 - 7.0 x10e3/ uL Granu locyt es Absol [place] 3.8 1.4 - 7.0 x10E3 /uL [facility] INSUR ANCE BILL Not Available Not Available 03/21/2025 14:57:28 03/02/20 25 03/03/2025 CBC W Auto Diffe renti al panel - Blood lymphocytes absolute 1.7 text: 0.7 - 3.1 x10e3/ uL Lymph ocyte s Absol [place] 1.7 0.7 - 3.1 x10E3 /uL [facility] INSUR ANCE BILL Not Available Not Available 03/21/2025 14:57:28 03/02/20 25 03/03/2025 CBC W Auto Diffe renti al panel - Blood monocytes absolute 0.6 text: 0.1 - 0.9 x10e3/ uL Monoc ytes Absol [place] 0.6 0.1 - 0.9 x10E3 /uL [facility] INSUR ANCE BILL Not Available Not Available 03/21/2025 14:57:28 03/02/20 25 03/03/2025 CBC W Auto Diffe renti al panel - Blood eosinophils absolute 0.2 text: 0.0 - 0.4 x10e3/ uL Eosin ophil s [place]ol [place] 0.2 0.0 - 0.4 x10E3 /uL [facility] INSUR ANCE BILL Not Available Not Available 03/21/2025 14:57:28 03/02/20 25 03/03/2025 CBC W Auto Diffe renti al panel - Blood basophils absolute 0.1 text: 0.0 - 0.2 x10e3/ uL Basop hils Absol [place] 0.1 0.0 - 0.2 x10E3 /uL [facility] INSUR ANCE BILL Not Available Not Available 03/21/2025 14:57:28 03/02/20 25 03/03/2025 CBC W Auto Diffe renti al panel - Blood immature granulocytes 0 % text: not estab. Immat ure Granu locyt es 0 Not Estab . % [facility] INSUR ANCE BILL Not Available Not Available 03/21/2025 14:57:28 03/02/20 25 03/03/2025 CBC W Auto Diffe renti al panel - Blood immature granulocytes absolute 0 text: 0.0 - 0.1 x10e3/ uL Immat ure Granu locyt es Absol [place] 0.0 0.0 - 0.1 x10E3 /uL [facility] INSUR ANCE BILL Not Available Not Available 03/21/2025 14:57:28 03/02/20 25 03/03/2025 CBC W Auto Diffe renti al panel - Blood Unknown Analyte Perfor med at: 01 - [facility] [address] [id number] [facility] Direct or: Shelley miller PhD, Not Available Not Available 14:57:28 03/02/20 25 03/03/2025 Compr ehens hilary metab olic 2000 panel - Serum or Plasm a glucose [mass/volume ] in serum or plasma 69 mg/dL low: 70mg/d Lhigh: 99mg/d L low Gluco se 69 (L) 70 - 99 mg/dL [facility] INSUR ANCE BILL Not Available Not Available 03/21/2025 14:57:28 03/02/20 25 03/03/2025 Compr [facility] hilary metab olic 2000 panel - Serum or Plasm a BUN 26 mg/dL low: 6mg/dL high: 24mg/d L high BUN 26 (H) 6 - 24 mg/dL [facility] RP INSUR ANCE BILL Not Available Not Available 03/21/2025 14:57:28 03/02/20 25 03/03/2025 Compr [facility] hilary Quincee olic 2000 panel - Serum or Plasm a creatinine [mass/volume ] in serum or plasma 0.71 mg/dL low: 0.57mg /dLhig h: 1mg/dL Creat inine 0.71 0.57 - 1.00 mg/dL [facility] RP INSUR ANCE BILL Not Available Not Available 03/21/2025 14:57:28 03/02/20 25 03/03/2025 Compr Shock Treatment Management hilary Quincee olic 2000 panel - Serum or Plasm a glomerular filtration rate [volume rate/area] in serum, plasma or blood by creatinine-b ased formula (CKD-epi)/1. 73 sq M 100 mL/mi n/1.7 3 low: 59mL/m in/1.7 3 eGFR by CKD-E PI 100 >59 mL/mi n/1.7 3 [facility] INSUR ANCE BILL Not Available Not Available 03/21/2025 14:57:28 03/02/20 25 03/03/2025 Compr [employer] hilary Quincee olic 2000 panel - Serum or Plasm a BUN/creatini ne ratio 37 low: 9high: 23 high BUN/C reati nine Ratio 37 (H) 9 - 23 [facility] INSUR ANCE BILL Not Available Not Available 03/21/2025 14:57:28 03/02/20 25 03/03/2025 Compr [facility] hilary metab olic 2000 panel - Serum or Plasm a sodium 141 mmol/ L low: 134mmo l/Lhig h: 144mmo l/L Sodiu m 141 134 - 144 mmol/ L [facility] INSUR ANCE BILL Not Available Not Available 03/21/2025 14:57:28 03/02/20 25 03/03/2025 Compr ehens hilary metab olic 1999 panel - Serum or Plasm a potassium 4.1 mmol/ L low: 3.5mmo l/Lhig h: 5.2mmo l/L Potas sium 4.1 3.5 - 5.2 mmol/ L [facility] INSUR ANCE BILL Not Available Not Available 03/21/2025 14:57:28 03/02/20 25 03/03/2025 Compr ehens hilary metab olic 1999 panel - Serum or Plasm a chloride 104 mmol/ L low: 96mmol /Lhigh : 106mmo l/L Chlor conchis 104 96 - 106 mmol/ L [facility] INSUR ANCE BILL Not Available Not Available 03/21/2025 14:57:28 03/02/20 25 03/03/2025 Compr ehens hilary metab olic 2000 panel - Serum or Plasm a CO2 24 mmol/ L low: 20mmol /Lhigh : 29mmol /L CO2 24 20 - 29 mmol/ L [facility] INSUR ANCE BILL Not Available Not Available 03/21/2025 14:57:28 03/02/20 25 03/03/2025 Compr ehens hilary metab olic 1999 panel - Serum or Plasm a calcium 8.7 mg/dL low: 8.7mg/ dLhigh : 10.2mg /dL Calci um 8.7 8.7 - 10.2 mg/dL [facility] INSUR ANCE BILL Not Available Not Available 03/21/2025 14:57:28 03/02/20 25 03/03/2025 Compr ehens hilary metab olic 1999 panel - Serum or Plasm a protein total 5.8 g/dL low: 6g/dLh igh: 8.5g/d L low Prote in Total 5.8 (L) 6.0 - 8.5 g/dL [facility] INSUR ANCE BILL Not Available Not Available 03/21/2025 14:57:28 03/02/20 25 03/03/2025 Compr ehens hilary metab olic 2000 panel - Serum or Plasm a albumin 4.1 g/dL low: 3.8g/d Lhigh: 4.9g/d L Album in 4.1 3.8 - 4.9 g/dL [facility] INSUR ANCE BILL Not Available Not Available 03/21/2025 14:57:28 03/02/20 25 03/03/2025 Compr ehens hilary metab olic 2000 panel - Serum or Plasm a globulin total 1.7 g/dL low: 1.5g/d Lhigh: 4.5g/d L Globu maria Total 1.7 1.5 - 4.5 g/dL [facility] INSUR ANCE BILL Not Available Not Available 03/21/2025 14:57:28 03/02/20 25 03/03/2025 Compr ehens hilary metab olic 2000 panel - Serum or Plasm a bilirubin total 0.4 mg/dL low: 0mg/dL high: 1.2mg/ dL Bilir ubin Total 0.4 0.0 - 1.2 mg/dL [facility] INSUR ANCE BILL Not Available Not Available 03/21/2025 14:57:28 03/02/20 25 03/03/2025 Compr ehens hilary metab olic 2000 panel - Serum or Plasm a alkaline phosphatase 74 text: 44 - 121 IU/L Alkal ine Phosp hatas e 74 44 - 121 IU/L [facility] INSUR ANCE BILL Not Available Not Available 03/21/2025 14:57:28 03/02/20 25 03/03/2025 Compr ehens hilary metab olic 2000 panel - Serum or Plasm a AST 30 text: 0 - 40 IU/L AST 30 0 - 40 IU/L [facility] RP INSUR ANCE BILL Not Available Not Available 03/21/2025 14:57:28 03/02/20 25 03/03/2025 Compr ehens hilary metab olic 2000 panel - Serum or Plasm a ALT 33 text: 0 - 32 IU/L high ALT 33 (H) 0 - 32 IU/L [facility] INSUR ANCE BILL Not Available Not Available 03/21/2025 14:57:28 03/02/20 25 03/03/2025 Compr ehens hilary metab olic 2000 panel - Serum or Plasm a Unknown Analyte [facility] at: 01 - [facility] [address] [id number] 654 [facility] or: Shelley miller PhD, Not Available Not Available 14:57:28 03/02/20 25 03/03/2025 Compr ehens hilary metab olic 2000 panel - Serum or Plasm a interpretati on and review of laboratory results Abnorm al Not Available Not Available 14:57:28 05/25/20 25 05/26/2025 CBC W Auto Diffe renti al panel - Blood white blood cell count 4.7 text: 3.8 - 10.8 thousa nd/uL Not Available Not Available 06/10/2025 10:32:30 05/25/20 25 05/26/2025 CBC W Auto Diffe renti al panel - Blood RBC 4.28 text: 3.80 - 5.10 millio n/uL Not Available Not Available 06/10/2025 10:32:30 05/25/20 25 05/26/2025 CBC W Auto Diffe renti al panel - Blood hemoglobin 13.3 g/dL low: 11.7g/ dLhigh : 15.5g/ dL Not Available Not Available 06/10/2025 10:32:30 05/25/20 25 05/26/2025 CBC W Auto Diffe renti al panel - Blood hematocrit 41.7 % low: 35%hig h: 45% Not Available Not Available 06/10/2025 10:32:30 05/25/20 25 05/26/2025 CBC W Auto Diffe renti al panel - Blood MCV 97.4 fL low: 80fLhi gh: 100fL Not Available Not Available 06/10/2025 10:32:30 05/25/20 25 05/26/2025 CBC W Auto Diffe renti al panel - Blood MCH 31.1 pg low: 27pghi gh: 33pg Not Available Not Available 06/10/2025 10:32:30 05/25/20 25 05/26/2025 CBC W Auto Diffe renti al panel - Blood MCHC 31.9 g/dL low: 32g/dL high: 36g/dL low For adult s, a sligh t decre ase in the calcu lated MCHC value (in the range of 30 to 32 g/dL) is most likel y not clini kimo sariah dowell t; [place], it shoul d be inter prete d with cauti on in corre lat n with other red cell toya eters and the patie nt's clini ade condi tion. Not Available Not Available 06/10/2025 10:32:30 05/25/2005/26/2025 CBC W Auto Diffe renti al panel - Blood RDW 12.1 % low: 11%hig h: 15% Not Available Not Available 06/10/2025 10:32:30 05/25/2005/26/2025 CBC W Auto Diffe renti al panel - Blood platelet count 186 text: 140 - 400 thousa nd/uL Not Available Not Available 06/10/2025 10:32:30 05/25/2005/26/2025 CBC W Auto Diffe renti al panel - Blood MPV 11.2 fL low: 7.5fLh igh: 12.5fL Not Available Not Available 06/10/2025 10:32:30 05/25/2005/26/2025 CBC W Auto Diffe renti al panel - Blood neutrophil absolute 2341 text: 1500 - 7800 cells/ uL Not Available Not Available 06/10/2025 10:32:30 05/25/2005/26/2025 CBC W Auto Diffe renti al panel - Blood lymphocytes absolute 1673 text: 850 - 3900 cells/ uL Not Available Not Available 06/10/2025 10:32:30 05/25/2005/26/2025 CBC W Auto Diffe renti al panel - Blood absolute monocytes 428 text: 200 - 950 cells/ uL Not Available Not Available 06/10/2025 10:32:30 05/25/2005/26/2025 CBC W Auto Diffe renti al panel - Blood eosinophils absolute 230 text: 15 - 500 cells/ uL Not Available Not Available 06/10/2025 10:32:30 05/25/2005/26/2025 CBC W Auto Diffe renti al panel - Blood basophils absolute 28 text: 0 - 200 cells/ uL Not Available Not Available 06/10/2025 10:32:30 05/25/2005/26/2025 CBC W Auto Diffe renti al panel - Blood granulocytes % 49.8 % Not Available Not Available 05/31 10:32:30 05/25/20 25 05/26/2025 CBC W Auto Diffe renti al panel - Blood lymphocytes % 35.6 % Not Available Not Available 05/31 10:32:30 05/25/20 25 05/26/2025 CBC W Auto Diffe renti al panel - Blood monocytes % 9.1 % Not Available Not Av ailable 06/10/2025 10:32:30 05/25/2005/26/2025 CBC W Auto Diffe renti al panel - Blood eosinophils % 4.9 % Not Available Not Available 05/31 10:32:30 05/25/2005/26/2025 CBC W Auto Diffe renti al panel - Blood basophils % 0.6 % Test Perfo rmed at: [facility] [place] [address] [place] [address] SHARON ARORA MD Not Available Not Available 06/10/2025 10:32:30 05/25/20 25 05/26/2025 CBC W Auto Diffe renti al panel - Blood interpretati on and review of laboratory results Abnorm al Not Available Not Available 10:32:30 05/25/2005/26/2025 Compr ehens hilary metab olic 1999 panel - Serum or Plasm a glucose 80 mg/dL low: 65mg/d Lhigh: 99mg/d L Fasti ng refer ence inter monie Not Available Not Available 06/10/2025 10:32:30 05/25/2005/26/2025 Compr ehens hilary metab olic 2000 panel - Serum or Plasm a BUN 20 mg/dL low: 7mg/dL high: 25mg/d L Not Available Not Available 06/10/2025 10:32:30 05/25/2005/26/2025 Compr ehens hilary metab olic 2000 panel - Serum or Plasm a creatinine 0.7 mg/dL low: 0.5mg/ dLhigh : 1.03mg /dL Not Available Not Available 06/10/2025 10:32:30 05/25/20 25 05/26/2025 Compr ehens hilary metab olic 2000 panel - Serum or Plasm a glomerular filtration rate [volume rate/area] in serum, plasma or blood by cystatin C-based formula/1.73 sq M 101 text: > or = 60 mL/min /1.73m 2 Not Available Not Available 06/10/2025 10:32:30 05/25/2005/26/2025 Compr ehens hilary metab olic 1999 panel - Serum or Plasm a BUN/creatini ne ratio SEE NOTE: text: (calc) Not Repor larissa: BUN and Creat inine are withi n refer ence range . Not Available Not Available 06/10/2025 10:32:30 05/25/2005/26/2025 Compr ehens hilary metab olic 1999 panel - Serum or Plasm a sodium 140 mmol/ L low: 135mmo l/Lhig h: 146mmo l/L Not Available Not Available 06/10/2025 10:32:30 05/25/2005/26/2025 Compr ehens hilary metab olic 1999 panel - Serum or Plasm a potassium 3.5 mmol/ L low: 3.5mmo l/Lhig h: 5.3mmo l/L Not Available Not Available 06/10/2025 10:32:30 05/25/2005/26/2025 Compr ehens hilary metab olic 1999 panel - Serum or Plasm a chloride 105 mmol/ L low: 98mmol /Lhigh : 110mmo l/L Not Available Not Available 06/10/2025 10:32:30 05/25/2005/26/2025 Compr ehens hilary metab olic 1999 panel - Serum or Plasm a CO2 30 mmol/ L low: 20mmol /Lhigh : 32mmol /L Not Available Not Available 06/10/2025 10:32:30 05/25/2005/26/2025 Compr ehens hilary metab olic 1999 panel - Serum or Plasm a calcium 8.6 mg/dL low: 8.6mg/ dLhigh : 10.4mg /dL Not Available Not Available 06/10/2025 10:32:30 05/25/2005/26/2025 Compr ehens hilary metab olic 2000 panel - Serum or Plasm a protein total 5.9 g/dL low: 6.1g/d Lhigh: 8.1g/d L low Not Available Not Available 06/10/2025 10:32:30 05/25/2005/26/2025 [facility] - Serum or Plasm a albumin 3.8 g/dL low: 3.6g/d Lhigh: 5.1g/d L Not Available Not Available 06/10/2025 10:32:30 05/25/2005/26/2025 [facility] 1999 panel - Serum or Plasm a globulin total 2.1 text: 1.9 - 3.7 g/dL (calc) Not Available Not Available 06/10/2025 10:32:30 05/25/2005/26/2025 [facility] 1999 panel - Serum or Plasm a albumin/glob ulin ratio 1.8 text: 1.0 - 2.5 (calc) Not Available Not Available 06/10/2025 10:32:30 05/25/2005/26/2025 [facility] 1999 panel - Serum or Plasm a bilirubin total 0.4 mg/dL low: 0.2mg/ dLhigh : 1.2mg/ dL Not Available Not Available 06/10/2025 10:32:30 05/25/2005/26/2025 [facility] 1999 panel - Serum or Plasm a alkaline phosphatase 61 U/L low: 37U/Lh igh: 153U/L Not Available Not Available 06/10/2025 10:32:30 05/25/2005/26/2025 [facility] 2000 panel - Serum or Plasm a AST 15 U/L low: 10U/Lh igh: 35U/L Not Available Not Available 06/10/2025 10:32:30 05/25/2005/26/2025 [facility] panel - Serum or Plasm a ALT 19 U/L low: 6U/Lhi gh: 29U/L REPOR T COMME NT: FASTI NG:YE S Test Perfo rmed at: [facility] [place] [address] [place] [address] SHARON ARORA MD Not Available Not Available 06/10/2025 10:32:30 05/25/20 25 05/26/2025 Compr ehens hilary metab olic 2000 panel - Serum or Plasm a interpretati on and review of laboratory results Abnorm al Not Available Not Available 10:32:30 05/25/20 25 05/26/2025 Eryth rocyt e sedim entat ion rate [[place]] in Red Blood Cells by Weste rgren metho d erythrocyte sedimentatio n rate westergren 6 mm/h text: < or = 30 REPOR T COMME NT: FASTI NG:YE S Test Perfo rmed at: [facility] [place] [address] [place], [place] [address] SHARON ARORA MD Not Available Not Available 06/10/2025 10:32:30 05/25/20 25 05/26/2025 C react hilary prote in [Mass /volu me] in Serum or Plasm a C-reactive protein <3.0 high: 8mg/L REPOR T COMME NT: FASTI NG:YE S Test Perfo rmed at: [facility] [place] [address] [place] [place], [place] [address] SHARON ARORA MD Not Available Not Available 06/10/2025 10:32:30 06/13/20 25 06/14/2025 MICRO SCOPI C EXAMI NATIO N WBC >30 /hpf 0-5 abnormal Not Available [facility] ([facility]) [address] [facility], [place], [address], 06/16/2025 03:08:01 06/13/20 25 06/14/2025 MICRO SCOPI C EXAMI NATIO N RBC 11-30 /hpf 0-2 abnormal Not Available [facility] ([facility]) [address] [facility], [place], [address], 06/16/2025 03:08:01 06/13/20 25 06/14/2025 MICRO SCOPI C EXAMI NATIO N epithelial cells (non renal) 0-10 /hpf 0-10 Not Available [facility] ([facility]) [address] [facility], [place], [address], 06/16/2025 03:08:01 06/13/2006/14/2025 MICRO SCOPI C EXAMI NATIO N casts None seen /lpf nonese en Not Available [facility] ([facility]) [address] [facility], [place], [address], 06/16/2025 03:08:01 06/13/2006/14/2025 MICRO SCOPI C EXAMI NATIO N bacteria Many nonese en/few abnormal Not Available [facility] ([facility]) [address] [facility], [place], [address], 06/16/2025 03:08:01 06/13/2006/14/2025 URINA LYSIS , ROUTI NE specific gravity 1.017 1.005- 1.030 Not Available [facility] ([facility]) [address] [facility], [place], [address], 06/16/2025 03:08:02 06/13/2006/14/2025 URINA LYSIS , ROUTI NE pH 6.0 5.0-7. 5 Not Available [facility] ([facility]) [address] [facility], [place], [address], 06/16/2025 03:08:02 06/13/2006/14/2025 URINA LYSIS , ROUTI NE urine-color YELLOW yellow Not Available [facility] ([facility]) [address] [facility], [place], [address], 06/16/2025 03:08:02 06/13/2006/14/2025 URINA LYSIS , ROUTI NE appearance CLOUDY clear abnormal Not Available [facility] ([facility]) [address] [facility], [place], [address], 06/16/2025 03:08:02 07/14/20 25 06/14/2025 URINA LYSIS , ROUTI NE WBC esterase 3+ negati ve abnormal Not Available [facility] ([facility]) [address] [place], [address], 06/16/2025 03:08:02 06/13/2006/14/2025 URINA LYSIS , ROUTI NE protein 1+ negati ve/tra ce abnormal Not Available [facility] ([facility]) [address] [place], [address], 06/16/2025 03:08:02 06/13/2006/14/2025 URINA LYSIS , ROUTI NE glucose NEGATI VE negati ve Not Available [facility] ([facility]) [address] [place], [address], 06/16/2025 03:08:02 06/13/2006/14/2025 URINA LYSIS , ROUTI NE ketones NEGATI VE negati ve Not Available [facility] ([facility]) [address] [place], [address], 06/16/2025 03:08:02 06/13/2006/14/2025 URINA LYSIS , ROUTI NE occult blood 2+ negati ve abnormal Not Available [facility] ([facility]) [address] [place], [address], 06/16/2025 03:08:02 06/13/2006/14/2025 URINA LYSIS , ROUTI NE bilirubin NEGATI VE negati ve Not Available [facility] ([facility]) [address] [place], [address], 06/16/2025 03:08:02 06/13/2006/14/2025 URINA LYSIS , ROUTI NE urobilinogen ,semi-qn 0.2 mg/dL 0.2-1. 0 Not Available [facility] ([facility]) [address] [place], [address], 06/16/2025 03:08:02 06/13/2006/14/2025 URINA LYSIS , ROUTI NE nitrite, urine POSITI VE negati ve abnormal Not Available [facility] ([facility]) [address] [facility], [place], [address], 06/16/2025 03:08:02 06/13/2006/14/2025 URINA LYSIS , ROUTI NE microscopic examination SEE BELOW: Micro scopi c was indic ated and was perfo rmed. Not Available [facility] ([facility]) [address] [facility], [place], [address], 06/16/2025 03:08:02 06/13/2006/15/2025 URINE CULTU RE, ROUTI NE urine culture, routine FINAL REPORT abnormal Not Available [facility] ([facility]) [address] [facility], [place], [address], 06/16/2025 03:08:03 06/13/2006/15/2025 URINE CULTU RE, ROUTI NE result 1 ESCHER ICHIA COLI abnormal Great er than 100,0 00 colon y formi ng units per mL Cefaz alexandre with an JAN <=16 predi cts susce ptibi lity to the oral agent s cefac zoraida, cefdi nuzhat, cefpo doxim e, cefpr ozil, cefur oxime , cepha lexin , and lorac arbef when used for thera py of uncom plica larissa urina ry tract infec tions due to E. coli, Klebs iella pneum oniae , and Prote us mirab ilis. Not Available [facility] ([facility]) [address] [facility], [place], [address], 06/16/2025 03:08:03 06/13/2006/15/2025 URINE CULTU RE, ROUTI NE antimicrobia l susceptibili ty COMMEN T S = Susce ptibl e; I = Inter media te; R = Resis tant P = Posit hilary; N = Negat hilary MICS are expre ssed in micro grams per mL Antib iotic RSLT# 1 RSLT# 2 RSLT# 3 RSLT# 4 Amoxi cilli n/Cla vulan ic Acid S Ampic illin R Cefaz alexandre S Cefep nicolle S Cefox itin S Cefpo doxim e S Ceftr iaxon e S Cipro floxa chaya S Ertap enem S Genta micin S Levof loxac in S Merop enem S Nitro furan toin S Piper acill in/Ta zobac tse S Tetra cycli ne R Tobra mycin S Trime thopr im/Pressley lfa S Not Available [facility] ([facility]) [address] [facility], [place], [address], 06/16/2025 03:08:03 Result Notes None recorded. Problems Name Problem SNOMED Code Status Onset Date Resolution Date Notes Provider Name and Address Organization Details Recorded Time Hypertens hilary disorder 44478875 Active 2018 Not Available [facility] 2 11:17:18 Morbid obesity 756699654 Completed 201810/26/2024 Carmel Hilton APN, FNP-C Attn: Accounting ,[address] [place], [address] , [facility] 4 09:19:22 Iron deficienc y anemia 70313799 Active 2018 Not Available [facility] 2 11:17:18 Vitamin D deficienc y 17408237 Active 2018 Not Available [facility] 2 11:17:18 Scoliosis deformity of spine 082847124 Active 2019 Not Available [facility] 2 11:17:18 Hyperpara thyroidis m 90291381 Active 2021 Carmel Hilton APN, FNP-C Attn: Accounting ,[address] [place], [address] , [facility] 2 15:15:32 Celluliti s of lower limb 057512283 Active 2021 Carmel Hilton APN, FNP-C Attn: Accounting ,[address] [facility] [place], [address] , [place] [facility] 2 13:47:30 History of rheumatoi d arthritis 134194637 Active 2021 Carmel Hilton BREAST SURGEON, MOLDING PLASTERER-C Attn: Accounting ,[address] [facility], [place], [address] , [place] - [facility] 2 11:29:15 Lymphedem a of lower extremity 114056802 Active 2021 Carmel Hilton BREAST SURGEON, MOLDING PLASTERER-C Attn: Accounting ,[address] [facility], [place], [address] , [place] [facility] 2 16:13:21 Pain of bilateral knee regions 39909445570 4102 Active 2022 Carmel Hilton BREAST SURGEON, MOLDING PLASTERER-C Attn: Accounting ,[address] [facility], [place], [address] , [place] [facility] 3 17:38:36 Malignant neoplasm of thyroid gland 951081507 Active 2022 Carmel Hilton BREAST SURGEON, MOLDING PLASTERER-C Attn: Accounting ,[address] [facility], [place], [address] , [place] [facility] 3 10:45:06 Obesity 661987184 Active 2023 Carmel Hilton BREAST SURGEON, MOLDING PLASTERER-C Attn: Accounting ,[address] [facility], [place], [address] , [place] [facility] 4 09:43:36 Feeling stressed 546202575 Active 2023 Carmel Hilton BREAST SURGEON, MOLDING PLASTERER-C Attn: Accounting ,[address] [facility], [place], [address] , [place] [facility] 4 09:43:43 Mass of lower limb 609983443 Active 2023 Carmel Hilton BREAST SURGEON, MOLDING PLASTERER-C Attn: Accounting ,[address] [facility], [place], [address] , [place] [facility] 4 09:43:47 Problem Notes Documentation Provider Name and Address Organization Details Recorded Time 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 Patient : 1970. Patient . Jinny nugent, [facility] 01/25/2025 10:10:15 Procedures Surgical History Date Name Laterality Status Provider Name and Address Organization Details Recorded Time 023 Hernia Repair completed Elizabeth Ryan Yimi [facility] 10/28/2023 14:38:03 023 duodenal switch completed Elizabeth Ryan Yimi [facility] 10/28/2023 14:38:46 023 Cholecystectomy completed DAMIAN Adkins [facility] 10/28/2023 14:39:13 023 parathyroidectomy completed Elizabeth Ryan [facility] 08/28/2023 10:58:49 023 endoscopy completed Elizabeth Ryan [facility] 04/25/2023 10:31:07 019 Date of Last Mammogram completed Perri Marie [place] - [facility] 06/09/2020 11:41:59 Tonsillectomy completed Josee Byrd [place] - [facility] 04/06/2019 14:26:51 Imaging Results None recorded. Procedure Notes None recorded. Medical Equipment None Reported. Allergies Allergen ID Allergen Name Allergen Category Reaction Reaction Severity Criticality Documentation Date Start Date Code Code System Note Provider Name and Address Organization Details Recorded Time [id number] sulfasala zine medicatio n rash Not available Not available 09/27/2020 9524 RxNorm THERON Delgado, [place] - [place] 0 15:06:17 460875 Azulfidin e medicatio n rash Not available Not available 09/27/2020 0 RxNorm Carmel Hilton APN, MOLDING PLASTERER-C Attn: Vanesa g,[address], [place], [address], [place] [facility] 0 16:08:56 Medications Name Sig Start Date Stop Date Status Note LastModified by Organization Details LastModified Time multivita min tablet TAKE 2 TABLETS BY MOUTH DAILY active Not Available Not Available No t Available celecoxib 200 mg capsule 09/27 completed Not Available Not Available Not Available cyclobenz aprine 10 mg tablet 10/28 completed after surgery Not Available Not Available Not Available venlafaxi ne ER 37.5 mg capsule,e xtended release 24 hr TAKE 1 CAPSULE BY MOUTH ONCE DAILY active Not Available Not Available No t Available doxycycli ne hyclate 100 mg capsule TK 1 C PO BID FOR 14 DAYS 03/06 completed Not Available Not Available Not Available azithromy chaya 250 mg tablet TAKE 2 TABLETS (500 MG) BY ORAL ROUTE ONCE DAILY FOR 1 DAY THEN 1 TABLET (250 MG) BY ORAL ROUTE ONCE DAILY FOR 4 DAYS 06/07 completed Not Available Not Available Not Available tizanidin e 4 mg tablet TAKE 1 TABLET BY MOUTH AT BEDTIME active Not Available Not Available No t Available hydrocodo ne 5 mg-acetam inophen 325 mg tablet TAKE 1 TABLET BY MOUTH EVERY 6 HOURS NEEDED FOR PAIN active Not Available Not Available No t Available Nystop 100,000 unit/gram topical powder APPLY TOPICALL Y TO GROIN AREA TWICE DAILY FOR SKIN INFECTIO N 08/28 completed Not Available Not Available Not Available lisinopri l 20 mg tablet TAKE 1 TABLET BY MOUTH EVERY DAY 06/22 completed Not Available Not Available Not Available ondansetr on HCl 4 mg tablet 10/26 completed Not Available Not Available Not Available doxycycli ne hyclate 50 mg capsule Take 1 capsule every 12 hours by oral route. 10/10 completed Not Available Not Available Not Available prednison e 5 mg tablet TAKE 1 TO 2 TABLETS BY MOUTH DAILY NEEDED 01/31 completed Not Available Not Available Not Available sulfasala zine 500 mg tablet,de layed release 09/27 completed Not Available Not Available Not Available leflunomi de 10 mg tablet 09/27 completed Not Available Not Available Not Available Calcium Antacid 200 mg (as calcium carbonate 500 mg) chewable tablet TAKE 1 TABLET BY MOUTH EVERY 8 HOURS 03/01 completed after surgery Not Available Not Available Not Available ciproflox acin 500 mg tablet TAKE 1 TABLET BY MOUTH EVERY 12 HOURS FOR 7 DAYS 11/16 completed Not Available Not Available Not Available sulfameth oxazole 800 mg-trimet hoprim 160 mg tablet Take 1 tablet every 12 hours by oral route for 14 days. 05/15 completed Not Available Not Available Not Available leflunomi de 20 mg tablet TAKE 1 TABLET BY MOUTH EVERY DAY 03/22 completed Not Available Not Available Not Available acetamino phen 500 mg tablet Ivan 10/26 completed Not Available Not Available Not Available triamcino lone acetonide 0.1 % topical cream APPLY THIN LAYER TOPICALL Y TO THE AFFECTED AREA TWICE DAILY active Not Available Not Available No t Available Macrobid 100 mg capsule Take 1 capsule every 12 hours by oral route for 7 days. 06/30 completed Not Available Not Available Not Available meloxicam 7.5 mg tablet 03/23 completed Not Available Not Available Not Available oxycodone -acetamin ophen 5 mg-325 mg tablet TAKE 1 TABLET BY MOUTH EVERY 4 HOURS NEEDED FOR PAIN 01/31 completed Not Available Not Available Not Available famotidin e 20 mg tablet TAKE 1 TABLET BY MOUTH TWICE DAILY active Not Available Not Available No t Available methotrex ate sodium 2.5 mg tablet TAKE 4 TABLETS BY MOUTH EVERY 7 DAYS 06/15 completed Not Available Not Available Not Available Soma 350 mg tablet Take 1 tablet 4 times a day by oral route as needed. 03/22 completed Not Available Not Available Not Available doxycycli ne monohydra te 100 mg capsule TAKE 1 CAPSULE BY MOUTH TWICE DAILY FOR 7 DAYS 08/08 completed Not Available Not Available Not Available cephalexi n 500 mg capsule Take 1 capsule every 6 hours by oral route for 10 days. 01/31 completed Not Available Not Available Not Available lisinopri l 10 mg tablet TAKE 1 TABLET BY MOUTH EVERY DAY 05/25 completed Not Available Not Available Not Available hyoscyami ne 0.125 mg sublingua l tablet 10/28 completed Not Available Not Available Not Available ursodiol 300 mg capsule 10/28 completed Not Available Not Available Not Available docusate sodium 100 mg capsule TAKE ONE CAPSULE BY MOUTH TWICE DAILY 10/28 completed after surgery Not Available Not Available Not Available folic acid 1 mg tablet TAKE 1 TABLET BY MOUTH EVERY DAY active Not Available Not Available No t Available hydrochlo rothiazid e 25 mg tablet TAKE 1 TABLET BY MOUTH EVERY DAY 10/10 completed Not Available Not Available Not Available furosemid e 20 mg tablet TAKE 1 TABLET BY MOUTH EVERY DAY 2024 active Not Available Not Available Not Avai lable ergocalci ferol (vitamin D2) 1,250 mcg (50,000 unit) capsule TAKE 1 CAPSULE BY MOUTH EVERY WEEK 05/30 completed Not Available Not Available Not Available hydroxych loroquine 200 mg tablet TAKE 1 TABLET BY MOUTH TWICE DAILY active Not Available Not Available No t Available polyethyl elizabeth glycol 3350 17 gram/dose oral powder 10/28 completed Not Available Not Available Not Available estradiol 0.01% (0.1 mg/gram) vaginal cream USE 1 GRAM VAGINALL Y 2 TIMES A WEEK. START MAINTENA NCE DOSE AFTER LOADING DOSE IS COMPLETE active Not Available Not Available No t Available scopolami ne 1 mg over 3 days transderm al patch APPLY 1 PATCH BEHIND THE EAR AT 8 PM THE NIGHT PRIOR TO SURGERY 10/28 completed Not Available Not Available Not Available norethind sara (contrace ptive) 0.35 mg tablet TAKE 1 TABLET BY MOUTH ONCE DAILY active Not Available Not Available No t Available lisinopri l 40 mg tablet TAKE 1 TABLET BY MOUTH EVERY DAY 08/28 completed take 1/2 tab daily Not Available Not Available Not Available ondansetr on 4 mg disintegr ating tablet DISSOLVE 2 TABLETS ON THE TONGUE TWICE DAILY NEEDED 09/10 completed Not Available Not Available Not Available amoxicill in 500 mg-potass ium clavulana te 125 mg tablet TAKE 1 TABLET BY MOUTH EVERY 12 HOURS FOR 7 DAYS 06/10 completed Not Available Not Available Not Available oxycodone 5 mg tablet 10/28 completed Not Available Not Available Not Available Allergy Relief (loratadi ne) 10 mg tablet Take 1 tablet by mouth once daily 2024 active Not Available Not Available Not Avai lable ibuprofen 10/27 completed otc. Not Available Not Available Not Available Celebrex 06/07 completed Rheum Not Available Not Available Not Available Tylenol Arthritis Pain 08/28 completed Not Available Not Available Not Available Humira 09/11 completed Not Available Not Available Not Available aprepitan t 40 mg capsule 10/28 completed after surgery Not Available Not Available Not Available FeroSul 325 mg (65 mg iron) tablet TAKE 1 TABLET BY MOUTH ONCE DAILY active Not Available Not Available No t Available Solu-Medr ol (PF) 125 mg/2 mL solution for injection Take 125 mg by injectio n route. 03/22 completed Not Available Not Available Not Available Certavite -Antioxid ant 18 mg-400 mcg tablet TAKE 2 TABLETS BY MOUTH ONCE DAILY active Not Available Not Available No t Available Stimulant Laxative Plus 8.6 mg-50 mg tablet 10/26 completed Not Available Not Available Not Available Humira(CF ) Pen 40 mg/0.4 mL subcutane ous kit INJECT 1 PEN (0.4 ML) SUBCUTAN EOUSLY ONCE EVERY 7 DAYS 07/25 completed rheumato logist d/c will start infusion on Aug 2022 Not Available Not Available Not Available ID NOW COVID-19 Test Kit TEST DIRECTED 05/30 completed Not Available Not Available Not Available BinaxNOW COVID-19 Ag Self Test kit TEST DIRECTED TODAY 06/25 completed Not Available Not Available Not Available Paxlovid 300 mg (150 mg x 2)-100 mg tablets in a dose pack USE DIRECTED 06/25 completed Not Available Not Available Not Available Vitals Date Recorded Body height Body mass index (BMI) Body weight Oxygen saturation Oxygen saturation in Arterial blood by Pulse oximetry Respiratory rate Body temperature Heart rate Systolic And Diastolic Provider Name and Address Organization Details Last Updated DateTime 5 166.37 cm 32.1 kg/m2 28768.1 g 98 % 98 % 16 /min 97.5 [degF] 66 /min 134/84 mm[Hg] DAMIAN Adkins [place] - [facility] 5 09:11:32 Date Recorded Body height Body mass index (BMI) Body weight Oxygen saturation Oxygen saturation in Arterial blood by Pulse oximetry Heart rate Respiratory rate Body temperature Systolic And Diastolic Provider Name and Address Organization Details Last Updated DateTime 5 166.37 cm 30.8 kg/m2 85030.3 7 g 99 % 99 % 64 /min 16 /min 97.8 [degF] 138/78 mm[Hg] Ronda De La Torre [place] - [facility] 5 15:11:53 Date Recorded Body height Body mass index (BMI) Body weight Oxygen saturation Oxygen saturation in Arterial blood by Pulse oximetry Respiratory rate Body temperature Heart rate Systolic And Diastolic Provider Name and Address Organization Details Last Updated DateTime 4 166.37 cm 32.1 kg/m2 09099.1 g 98 % 98 % 16 /min 98 [degF] 70 /min 106/68 mm[Hg] Elizabeth Ryan [facility] 4 09:17:42 Date Recorded Body height Body mass index (BMI) Body weight Oxygen saturation Oxygen saturation in Arterial blood by Pulse oximetry Respiratory rate Body temperature Heart rate Systolic And Diastolic Provider Name and Address Organization Details Last Updated DateTime 4 166.37 cm 31.8 kg/m2 28503.9 2 g 97 % 97 % 16 /min 97.8 [degF] 64 /min 112/74 mm[Hg] Elizabeth Ryan [facility] 4 11:43:48 Social History Question Answer Notes LastModified by Organizat ion Details LastModified Time Tobacco Smoking Status Former Smoker Quit 1998 Raya Reyes MA [place], [place] - [facility] 04/18/2020 10:04:11 Do You Have An Advance Directive? No Information not available 04/06/2019 Are You Blind Or Do You Have Difficulty Seeing? No Glasses Information not available 06/07/2021 What Is Your Level Of Caffeine Consumption? Moderate 1 Cups Of Coffee [email or web address] Information not available 08/08/2022 How Much Tobacco Do You Chew? None Information not available 04/06/2019 In The 14 Days Before Symptom Onset, Have You Had Close Contact With A Laboratory-confir med COVID-19 While That Case Was Ill? No [email or web address] Information not available 10/10/2022 In The 14 Days Before Symptom Onset, Have You Had Close Contact With A Person Who Is Under Investigation For COVID-19 While That Person Was Ill? No [email or web address] Information not available 10/10/2022 Have You Been To An Area Known To Be High Risk For COVID-19? No Information not available 03/23/2020 Are You Deaf Or Do You Have Serious Difficulty Hearing? No Information not available 03/22/2021 What Type Of Diet Are You Following? REGULAR Bariatric Diet Information not available 10/28/2023 Which Illicit Or Recreational Drugs Have You Used? None Information not available 04/06/2019 Education 2 Year College Information not available 04/06/2019 Are There Any Guns Present In Your Home? Yes Information not available 04/06/2019 Hard Of Hearing Or Deaf In One Or Both Ears? No Information not available 03/23/2020 Legally Blind In One Or Both Eyes? No Information no t available 03/23/2020 Marital Status Informatio n not available 04/06/2019 What Was The Date Of Your Most Recent Tobacco Screening? 06/15/2025 [email or web address] Information not available 06/15/2025 How Many Children Do You Have? 4 Information not available 06/07/2021 Performs Monthly Self-breast Exam? Yes Sometimes Information no t available 04/18/2020 Do You Use Protection During Sex? No Information not available 06/07/2021 What Is Your Relationship Status? Information not available 03/22/2021 Do You Use Your Seat Belt Or Car Seat Routinely? Yes [email or web address] Information not available 06/25/2023 Seat Belts Used Routinely Yes Information not available 04/06/2019 Are You Sexually Active? Yes Information not available 06/07/2021 Smoke Alarm In Home Yes Information not available 04/06/2019 Do You Have Smoke And Carbon Monoxide Detectors In Your Home? Yes Information not available 03/22/2021 Are You Passively Exposed To Smoke? No Information no t available 03/22/2021 How Much Tobacco Do You Smoke? No Information not available 04/06/2019 General Stress Level Medium [email or web address] Information not available 10/27/2019 Do You Use Sunscreen Routinely? Yes Information not available 06/07/2021 Has Tobacco Cessation Counseling Been Provided? No Information not available 04/06/2019 On What Date Was Tobacco Cessation Counseling Provided? 01/31/2025 Information not available 01/31/2025 Sex: Female Functional Status Question Answer Note LastModified by Organizat ion Details LastModified Time Do you use any illicit or recreational drugs? No Information not available 03/22/2021 Do you or have you ever used any other forms of tobacco or nicotine? No Information not available 03/22/2021 What is your level of alcohol consumption? Occasional rarely Information not available 04/18/2020 Do you or have you ever used smokeless tobacco? Never used smokeless tobacco Information not available 07/20/2019 Are you currently employed? Yes Information not available 03/22/2021 Are you able to care for yourself independently? Yes Information not available 03/22/2021 What is your occupation? [employer] Information not available 03/22/2021 Do you or have you ever used e-cigarettes or vape? Never used electronic cigarettes Information not available 07/20/2019 What is your exercise level? Moderate gym membership [email or web address] Information not available 08/28/2023 Mental Status Question Answer Note LastModified by Organization D etails LastModified Time Do you feel stressed (tense, restless, nervous, or anxious, or unable to sleep at night)? [id number] Information not available 10/28/2023 Family History Relationship Description Onset Age of this Age Resolved Age Notes LastModified by Organization Details LastModified Time Mother Chronic non-A non-B hepatitis rreiter Not available 2018 14:20:18 Mother Granulomatos is with polyangiitis of nose rreiter Not available 2018 14:21:00 Paternal Grandmother Limited granulomatos is with polyangiitis rreiter Not available 05/2019 14:21:40 Paternal Grandmother Malignant lymphoma rreiter Not available 2018 14:25:29 Father Asthma rreiter Not available 14:21:59 Father Hypertensive disorder rreiter Not available 2018 14:22:13 Sister Hyperthyroid ism with Newton disease rreiter Not available 2018 14:23:38 Sister Sj gren's syndrome rreiter Not available 2018 14:23:56 Paternal Grandfather Mental disorder rreiter Not available 2018 14:25:44 Paternal Grandfather Hypertensive disorder rreiter Not available 2018 14:25:54 Maternal Grandmother Diabetes mellitus rreiter Not available 2018 14:26:07 Maternal Grandmother Cerebrovascu lar accident rreiter Not available 05/2019 14:26:20 Maternal Grandfather Cerebrovascu lar accident rreiter Not available 05/2019 14:26:13 Medical History Condition Response Coronary Artery Disease N Other N High Blood Pressure Y Atrial Fibrillation N Thyroid Problems N Kidney or Bladder Problems N GI Problems N Depression N COPD N Blood Clots N Skin Problems N Eating Disorder N Anemia N Heart Attack (LA) N Anxiety Disorder N Diabetes N Muscle, Joint, or Bone Problems N Seizures/Epilepsy N Acid Reflux (GERD) N Cancer Y Stroke N Asthma N Allergies N ADHD N Substance Abuse N High Cholesterol N Hepatitis N Liver Disease N Schizophrenia N Headaches N Heart Failure N Osteoporosis N Gynecological History Statement/Question Response Date of Last Mammogram 05/10/2019 Flow Light Date of LMP 12/01/2021 Menses Monthly N Date of Last Pap Smear Duration of Flow (days) 7 Age at Menarche 11 Current Control Method BCPs Obstetrics History GPAL:G 0 P 0 0 0 0 Immunizations Vaccine Type Date Status Note Provider Nam e and Address Organization Details Recorded Time COVID-19, mRNA, LNP-S, PF, 30 mcg/0.3 mL dose, leonardo-sucrose 2 completed Not Available [facility] 10/14/2023 12:21:15 zoster recombinant 2 completed Not Available [facility] 10/14/2023 12:21:14 COVID-19 vaccine, vector-nr, rS-Ad26, PF, 0.5 mL 1 completed Not Available [facility] 10/14/2023 12:21:15 Tdap 7 completed Not Available [facility] 10/14/2023 12:21:15 zoster recombinant 2 completed Not Available [facility] 10/14/2023 12:21:14 tetanus toxoid, adsorbed 7 completed BELKIS GrigsbyN, MOLDING P[employer]ERER-C Attn: Accounting[address] [facility], [place], [address], [place] - [facility] 02/17/2023 14:37:34 SARS-COV-2 (COVID-19) vaccine, UNSPECIFIED 1 completed Carmel Hilton APN, [employer]OLD[employer] P[employer]-C Attn: Accounting[address] [facility], [place], [address], [place] - [facility] 03/01/2024 16:18:59 Tdap 9 completed Not Available [facility] 12/18/2019 02:38:05 Influenza, split virus, quadrivalent, preservative 1 completed Josee Byrd [place], [place] [facility] 09/11/2021 16:43:43 COVID-19, mRNA, LNP-S, PF, 30 mcg/0.3 mL dose 1 completed Josee Byrd [place] [facility] 11/02/2021 09:42:42 COVID-19, mRNA, LNP-S, bivalent, PF, 30 mcg/0.3 mL dose 2 completed Elizabeth [place], [place] [facility] 10/10/2022 17:00:24 Influenza, split virus, quadrivalent, preservative 2 completed Carmel Hilton APN, MOLD[employer] P[employer]-C Attn: Accounting[address] [facility], [place], [address], [place] [facility] 11/11/2022 16:08:45 Influenza, split virus, quadrivalent, PF 3 completed Elizabeth [place] [facility] 08/28/2023 16:14:24 Influenza, split virus, trivalent, preservative 4 completed DAMIAN Ad[place] [facility] 11/16/2024 12:43:05 COVID-19, mRNA, LNP-S, PF, 50 mcg/0.5 mL completed Raya THERON Reyes [place], [place] [facility] 11/29/2024 18:03:29 Past Encounters Encounter ID Performer Location Encounter Start Date Encounter Closed Date Diagnosis/Indication Diagnosis SNOMED-CT Code Diagnosis ICD10 Code Diagnosis IMO Codes Diagnosis Note [id number] MD Ishaan Richmond (Adult Med) [address] [place] [address] 04/06/2019 14:00:53 04/22/2019 12:46:47 Adult health examination 836057672 Z00.01 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 Hypertensive disorder 38 340008 I10 resuming lisinopril 10 mg, will likely need water pill; Morbid obesity 555891816 E66.01 dwp weight loss goals, options.ad vised low fat, low cholestero l, low carb diet, regular exercise. Screening for malignant neoplasm of breast 074783514 Z12.31 mammogram order provided Screening for malignant neoplasm of colon 110626283 Z12.11 Stool kit provided with [employer] for use. Pain in pelvis 64544887 R10.2 chronic pain and frequent bleeding/s potting, needs to see office technologist as she has not been in many years Pain of mu ltiple joints 25445154 M25.50 pains in hands, knees; checking labs, family hx of autoimmune disease: sjogrens, hashimotos , lupus, ra [id number] MD Ishaan Richmond (Adult Med) [address] [place] [address] 04/27/2019 09:15:17 04/27/2019 11:33:02 Atopic dermatitis 85463978 L20.9 several macular patches across anterior and left lateral neck and chest, varying in size from 1 inch diameter to 3 inches diameter. Will rx steriod cream, pt unsure of former rx so will start with triamcinol one. Hypertensive disorder 38 529174 I10 cont lisinopril increasing to 20 mg, also adding hxtz 25 mg, dwp checking bp at home and call if readings over 140/90 or if elevated at any other appts Rheumatoid factor detected 823414703 R76.0 family hx of RA, Kathy's, sjogrens, lupus and hashimotos ; labs pos for sed rate, crp and RA, referring to rheum for further evaluation and treatment Edema of damaso gleasoner extremity 020419772 R60.0 [id number] MD Ishaan Richmond (Adult Med) [address] [place] [address] 06/22/2019 10:59:44 06/23/2019 09:43:33 Hypertensive disorder 21490888 I10 elevated still cont lisinopril increasing to 40 mg, hctz 25 mg, dwp checking bp at home and call if readings over 140/90 or if elevated at any other appts Posterior rhinorrhea 758 52228 R09.82 dwp starting allergy medication : claritin or zyrtec [id number] MD Ishaan Richmond (Adult Med) [address] [place] [address] 07/20/2019 10:31:29 07/21/2019 10:48:03 Hypertensive disorder 85755207 I10 elevated; still cont lisinopril 40 mg, stopping hctz 25 mg, start lasix 20 mg bid; dwp checking bp at home and call if readings over 140/90 or if elevated at any other appts Morbid obesity 686021751 E66.01 dwp weight loss goals, options.ad vised low fat, low cholestero l, low carb diet, regular exercise. Administra tion of diphtheria, pertussis, and tetanus vaccine 672162032 Z23 [facility] handout provided Edema of damaso ower extremity 806592317 R60.0 [id number] MD Ishaan Richmond (Adult Med) [address] [place] [address] 10/27/2019 11:30:17 10/29/2019 16:53:12 Hypertensive disorder 50994112 I10 still cont lisinopril 40 mg, stopping hctz 25 mg, start lasix 20 mg bid; dwp checking bp at home and call if readings over 140/90 or if elevated at any other appts Morbid obesity 069528050 E66.01 dwp weight loss goals, options.ad vised low fat, low cholestero l, low carb diet, regular exercise. [id number] MD Ishaan Richmond (Adult Med) [address] [facility] [place] [address] 03/23/2020 08:15:30 03/24/2020 11:37:55 Morbid obesity 523251517 E66.01 dwp weight loss goals, options.ad vised low fat, low cholestero l, low carb diet, regular exercise. Hypertensive disorder 38 418481 I10 still cont lisinopril 40 mg, stopping hctz 25 mg, start lasix 20 mg bid; dwp checking bp at home and call if readings over 140/90 or if elevated at any other appts Vitamin D deficiency 347 31928 E55.9 low,cont vit D replacemen t Scoliosis deformity of spine 716375530 M41.9 Rheum sent for back xrays, then sent to PT but pt unable to do right now d/t covid 19. [id number] MD Ishaan Richmond (Adult Med) [address] [place] [address] 04/18/2020 09:34:13 04/19/2020 10:56:37 Cellulitis of right lower limb [id number] 3623471 L03.115 reviewed photo with pt, will cover for bacterial cellulitis with bactrim, advised pt to call if any changes or increase in pain or if not improving on med [id number] MD Isahan Richmond (Adult Med) [address] [place] [address] 05/15/2020 08:16:07 05/17/2020 07:15:30 Recurrent skin infection 004235791 L08.9 recent cellulitis , dwp keeping on abx longer length of time to prevent it from any recurrence , cont with topical prn, [id number] MD Ishaan Richmond (Adult Med) [address] [facility] [place] [address] 06/07/2020 07:57:04 07/03/2020 10:04:28 Strain of back muscle 050656064 S39.012A dwp acute flare of back, will change muscle relaxer to soma, dwp seeing chiropract or since she can't get to PT, will also consider IM injection if not better by Trino (pt leaving on out of town trip Sat) [id number] MD Ishaan Richmond (Adult Med) [address] [place] [address] 06/09/2020 11:33:00 06/13/2020 12:27:10 Strain of back muscle 043033794 S39.012A dwp acute flare of back, will change muscle relaxer to soma, dwp seeing chiropract or since she can't get to PT, IM injection if not better by Friday (pt leaving on out of town trip Sat) [id number] MD Ishaan Richmond (Adult Med) [address] [place] [address] 09/27/2020 08:33:43 09/28/2020 11:54:14 Screening for malignant neoplasm of colon 971588757 Z12.11 Stool kit provided with [employer] for use. Cellulitis of lower limb 885768640 L03.119 fever, right leg redness and swelling, start doxy; [id number] MD Ishaan Richmond (Adult Med) [address] [place] [address] 03/22/2021 12:16:40 03/23/2021 08:43:30 Morbid obesity 231193517 E66.01 dwp weight loss goals, options. advised low fat, low cholestero l, low carb diet, regular exercise. Vitamin D deficiency 347 78102 E55.9 low, cont vit D replacemen t Hypertensive disorder 38 209289 I10 still cont lisinopril 40 mg, hctz 25 mg, start lasix 20 mg- was only taking qd, dwp if edema increases to take bid dwp checking bp at home and call if readings over 140/90 or if elevated at any other apts Iron defic iency anemia 65686895 D50.9 hx of anemia , heavy periods, cont iron replacemen t Endocrine/ metabolic screening 955320180 Z13.228 Posterior rhinorrhea 758 27245 R09.82 dwp starting allergy medication : claritin or zyrtec [id number] MD Ishaan Richmond (Adult Med) [address] [place] [address] 2021 15:14:51 05/25/2021 05:29:32 Acute sinusitis 76588979 J01.90 low grade fever and sinus pressure, recent humira dosept requested brandie so the timing of her other doses is not delayed [id number] MD Ishaan Richmond (Adult Med) [address] [place] [address] 06/07/2021 11:40:17 06/08/2021 08:39:38 Hypertensive disorder 25217390 I10 still cont lisinopril 40 mg, hctz 25 mg, start lasix 20 mg- was only taking qd, dwp if edema increases to take bid dwp checking bp at home and call if readings over 140/90 or if elevated at any other apts Morbid obesity 188678726 E66.01 dwp weight loss goals, options. advised low fat, low cholestero l, low carb diet, regular exercise. Vitamin D deficiency 347 12676 E55.9 low, cont vit D replacemen t Iron defic iency anemia 67273269 D50.9 hx of anemia , heavy periods, cont iron replacemen t Posterior rhinorrhea 758 83617 R09.82 dwp starting allergy medication : claritin or zyrtec Post-acute COVID-19 1119 516831 U07.1 dwp to cont to monitor improvemen t, f/u with rhuem regarding steroid use [id number] MD Ishaan Richmond (Adult Med) [address] [place] [address] 09/11/2021 12:02:03 09/14/2021 10:59:38 Vitamin D deficiency 84209200 E55.9 low, cont vit D replacemen t Morbid obesity 433879382 E66.01 dwp weight loss goals, options. advised low fat, low cholestero l, low carb diet, regular exercise. Hypertensive disorder 38 837518 I10 still cont lisinopril 40 mg, hctz 25 mg, start lasix 20 mg- was only taking qd, dwp if edema increases to take bid dwp checking bp at home and call if readings over 140/90 or if elevated at any other apts Iron defic iency anemia 03709836 D50.9 hx of anemia , heavy periods, cont iron replacemen t Administra tion of influenza vaccine 84338775 Z23 [id number] MD Ishaan Richmond (Adult Med) [address] [place] [address] 10/30/2021 17:44:19 10/31/2021 14:56:42 Administration of SARS-CoV-2 mRNA vaccine 2143113771 Z23 [id number] MD Ishaan Richmond (Adult Med) [address] [place] [address] 05/30/2022 14:26:10 05/31/2022 09:44:25 Hypertensive disorder 02915664 I10 still cont lisinopril 40 mg, hctz 25 mg, lasix 20 mg- was only taking qd, dwp if edema increases to take bid dwp checking bp at home and call if readings over 140/90 or if elevated at any other apts Vitamin D deficiency 347 84902 E55.9 low, cont vit D replacemen t Morbid obesity 207176356 E66.01 dwp weight loss goals, options. advised low fat, low cholestero l, low carb diet, regular exercise. Iron defic iency anemia 67594804 D50.9 hx of anemia , heavy periods, cont iron replacemen t Hyperparathyroidism 6699 9008 E21.3 high at rheum, will send copy of labs, will refer to endocrine [id number] MD Ishaan Richmond (Adult Med) [address] [place] [address] 07/04/2022 15:23:37 07/04/2022 23:32:00 Hypertensive disorder 05654477 I10 still cont lisinopril 40 mg, hctz 25 mg, lasix 20 mg- was only taking qd, dwp if edema increases to take bid dwp checking bp at home and call if readings over 140/90 or if elevated at any other apts Morbid obesity 942538440 E66.01 dwp weight loss goals, options. advised low fat, low cholestero l, low carb diet, regular exercise. [id number] MD Ishaan Richmond (Adult Med) [address] [place] [address] 08/08/2022 11:37:11 08/09/2022 10:12:21 Morbid obesity 992611920 E66.01 dwp weight loss goals, options. advised low fat, low cholestero l, low carb diet, regular exercise. Hypertensive disorder 38 919299 I10 still cont lisinopril 40 mg, hctz 25 mg, lasix 20 mg- was only taking qd, dwp if edema increases to take bid dwp checking bp at home and call if readings over 140/90 or if elevated at any other apts Cellulitis of lower limb 385557215 L03.119 hx of fever, right leg redness and swelling, finished doxy- not improved then sent kflexnow today 2-3 inch scab to proximal right medial lower leg, no erythema or discharge, dwp to call if worsens [id number] MD Ishaan Richmond (Adult Med) [address] [place] [address] 09/10/2022 10:26:43 09/11/2022 11:11:22 Morbid obesity 953256035 E66.01 dwp weight loss goals, options. advised low fat, low cholestero l, low carb diet, regular exercise. Hypertensive disorder 38 232868 I10 still cont lisinopril 40 mg, hctz 25 mg, lasix 20 mg- was only taking qd, dwp if edema increases to take bid dwp checking bp at home and call if readings over 140/90 or if elevated at any other apts Vitamin D deficiency 347 84870 E55.9 low, cont vit D replacemen t [id number] MD Ishaan Richmond (Adult Med) [address] [place] [address] 10/10/2022 15:35:13 10/11/2022 16:18:20 Hypertensive disorder 18270009 I10 still cont lisinopril 40 mg, hctz 25 mg, lasix 20 mg- was only taking qd, dwp if edema increases to take bid dwp checking bp at home and call if readings over 140/90 or if elevated at any other apts Vitamin D deficiency 347 57686 E55.9 low, cont vit D replacemen t Morbid obesity 787453012 E66.01 dwp weight loss goals, options. advised low fat, low cholestero l, low carb diet, regular exercise. Lymphedema of lower extremity 759204341 I89.0 right leg larger than left, frequent cellulitis , was advised by rheum to try PT for lymphatic therapy, will refer [id number] MD Ishaan Richmond (Adult Med) [address] [place] [address] 10/10/2022 16:54:39 10/14/2022 09:01:49 Administration of SARS-CoV-2 antigen vaccine 011296435 Z23 [id number] MD Ishaan Richmond (Adult Med) [address] [place] [address] 11/11/2022 14:59:43 11/12/2022 09:21:38 Morbid obesity 630793225 E66.01 dwp weight loss goals, options. advised low fat, low cholestero l, low carb diet, regular exercise. Hypertensive disorder 38 602816 I10 still cont lisinopril 40 mg, hctz 25 mg, lasix 20 mg- was only taking qd, dwp if edema increases to take bid dwp checking bp at home and call if readings over 140/90 or if elevated at any other apts Vitamin D deficiency 347 17927 E55.9 low, cont vit D replacemen t Lymphedema of lower extremity 056700002 I89.0 right leg larger than left, frequent cellulitis , was advised by rheum to try PT for lymphatic therapy Administra tion of influenza vaccine 27833492 Z23 [id number] MD Ishaan Richmond (Adult Med) [address] [place] [address] 12/18/2022 16:09:05 12/19/2022 16:07:37 Morbid obesity 146968527 E66.01 dwp weight loss goals, options. advised low fat, low cholestero l, low carb diet, regular exercise. Hypertensive disorder 38 945978 I10 still cont lisinopril 40 mg, hctz 25 mg, lasix 20 mg- was only taking qd, dwp if edema increases to take bid dwp checking bp at home and call if readings over 140/90 or if elevated at any other apts Pain of bi lateral knee regions [id number] 68890 M25.561 M25.562 increasing pain to knees, last xrays done at rheum office, will repeat and will refer to ortho for possible cortisone injections Vitamin D deficiency 347 30478 E55.9 low, cont vit D replacemen t check lab Iron defic iency anemia 93870198 D50.9 hx of anemia , heavy periods, cont iron replacemen t- check lab [id number] MD Ishaan Richmond (Adult Med) [address] [place] [address] 01/17/2023 15:31:54 01/22/2023 13:27:53 Morbid obesity 676843040 E66.01 dwp weight loss goals, options. advised low fat, low cholestero l, low carb diet, regular exercise. Hypertensive disorder 38 234315 I10 still cont lisinopril 40 mg, hctz 25 mg, lasix 20 mg- was only taking qd, dwp if edema increases to take bid dwp checking bp at home and call if readings over 140/90 or if elevated at any other apts [id number] MD Ishaan Richmond (Adult Med) [address] [place] [address] 02/17/2023 14:00:59 02/18/2023 15:02:16 Morbid obesity 378170418 E66.01 dwp weight loss goals, options. advised low fat, low cholestero l, low carb diet, regular exercise. Hypertensive disorder 38 191359 I10 still cont lisinopril 40 mg, hctz 25 mg, lasix 20 mg- was only taking qd, dwp if edema increases to take bid dwp checking bp at home and call if readings over 140/90 or if elevated at any other apts Electrocar diogram abnormal 552422446 R94.31 will refer to cardio Screening for malignant neoplasm of colon 786869632 Z12.11 Stool kit provided with vogogo for use. [id number] MD Ishaan Richmond (Adult Med) [address] [place] [address] 03/20/2023 13:59:55 03/25/2023 13:16:13 Morbid obesity 246112747 E66.01 dwp weight loss goals, options. advised low fat, low cholestero l, low carb diet, regular exercise. Hypertensive disorder 38 531015 I10 still cont lisinopril 40 mg, hctz 25 mg, lasix 20 mg- was only taking qd, dwp if edema increases to take bid dwp checking bp at home and call if readings over 140/90 or if elevated at any other apts [id number] MD Ishaan Richmond (Adult Med) [address] [place] [address] 04/25/2023 10:03:41 04/29/2023 13:55:27 Morbid obesity 707594650 E66.01 dwp weight loss goals, options. advised low fat, low cholestero l, low carb diet, regular exercise. Hypertensive disorder 38 634775 I10 still cont lisinopril 40 mg, hctz 25 mg, lasix 20 mg- was only taking qd, dwp if edema increases to take bid dwp checking bp at home and call if readings over 140/90 or if elevated at any other apts [id number] MD Ishaan Richmond (Adult Med) [address] [place] [address] 05/27/2023 13:58:55 05/29/2023 10:09:41 Morbid obesity 637499015 E66.01 dwp weight loss goals, options. advised low fat, low cholestero l, low carb diet, regular exercise. Hypertensive disorder 38 679069 I10 still cont lisinopril 40 mg, hctz 25 mg, lasix 20 mg- was only taking qd, dwp if edema increases to take bid dwp checking bp at home and call if readings over 140/90 or if elevated at any other apts [id number] MD Ishaan Richmond (Adult Med) [address] [place] [address] 06/25/2023 11:28:02 06/26/2023 08:51:18 Morbid obesity 523994107 E66.01 dwp weight loss goals, options. advised low fat, low cholestero l, low carb diet, regular exercise. Hypertensive disorder 38 287775 I10 still cont lisinopril 40 mg, hctz 25 mg, lasix 20 mg- was only taking qd, dwp if edema increases to take bid dwp checking bp at home and call if readings over 140/90 or if elevated at any other apts [id number] MD Ihsaan Richmond (Adult Med) [address] [place] [address] 07/17/2023 11:50:32 07/22/2023 12:09:00 Morbid obesity 145056148 E66.01 dwp weight loss goals, options. advised low fat, low cholestero l, low carb diet, regular exercise. Hypertensive disorder 38 775845 I10 still cont lisinopril 40 mg, hctz 25 mg, lasix 20 mg- was only taking qd, dwp if edema increases to take bid dwp checking bp at home and call if readings over 140/90 or if elevated at any other apts [id number] MD Ishaan Richmond (Adult Med) [address] [place] [address] 08/28/2023 10:46:03 08/31/2023 11:28:48 Morbid obesity 243173138 E66.01 dwp weight loss goals, options. advised low fat, low cholestero l, low carb diet, regular exercise. Hypertensive disorder 38 967320 I10 still cont lisinopril - has been on 40 mg taking half, will decrease to 10 mg for post op dwp checking bp at home and call if readings over 140/90 or if elevated at any other apts History of subtotal thyroidectomy 294021204 Z90.09 post op, good healing to wounds with scar present Administra tion of influenza vaccine 44243513 Z23 [id number] MD Ishaan Richmond (Adult Med) [address] [place] [address] 10/28/2023 14:31:27 10/29/2023 15:23:23 Morbid obesity 456530350 E66.01 dwp weight loss goals, options. advised low fat, low cholestero l, low carb diet, regular exercise. Hypertensive disorder 38 169140 I10 still cont lisinopril - has been on 40 mg taking half, will decrease to 10 mg for post op dwp checking bp at home and call if readings over 140/90 or if elevated at any other apts [id number] MD Ishaan Richmond (Adult Med) [address] [place] [address] 03/01/2024 15:53:20 03/04/2024 15:04:33 Hypertensive disorder 16248888 I10 stable; cont lisinopril - 10 mg dwp checking bp at home Morbid obesity 007196112 E66.01 dwp weight loss goals, options. advised low fat, low cholestero l, low carb diet, regular exercise. Screening for malignant neoplasm of breast 516941854 Z12.31 mammogram order provided Depression screening 171 649951 Z13.31 depression screening positive-r epeat at followup [id number] MD Ishaan Richmond (Adult Med) [address] [place] [address] 05/04/2024 14:58:00 05/05/2024 21:11:15 Feeling stressed 140058924 Z73.3 lots of stress at homept c/o lack of patience and easily angered, dealing with a situation with adoptive childrendw p medication options, will start effexorR/B /A/SE of antidepres jazlyn medication discussed such as gastrointe stinal s/e, mood irritabili ty, Suicidal ideation, risk of heidi. F/U in 3-4 weeks. Call with concerns and questions. Compliance with medication s and follow up care strongly recommende d. Call 911 or ER for crises. Obesity 217187070 E66.9 cont working on weight [id number] MD Ishaan Richmond (Adult Med) [address] [place] [address] 05/25/2024 15:42:29 06/01/2024 10:09:38 Hypertensive disorder 91746467 I10 stable; cont lisinopril - 10 mg, dropping too low, stop lisinopril cont checking bp at home Feeling stressed 0603592 06 Z73.3 lots of stress at homept c/o lack of patience and easily angered, dealing with a situation with adoptive childrendw p medication options, will start effexorimp roved on 37.5, will cont this dose R/B/A/SE of antidepres jazlyn medication discussed such as gastrointe stinal s/e, mood irritabili ty, Suicidal ideation, risk of ehidi. Call with concerns and questions. Compliance with medication s and follow up care strongly recommende d. Call 911 or ER for crises. Obesity 270374931 E66.9 cont working on weight loss [id number] MD Ishaan Richmond (Adult Med) [address] [place] [address] 07/12/2024 14:14:19 07/13/2024 09:16:39 Dysuria 94021941 R30.0 urine dip pos leuk, will send for culture and notify pt if abx change needed, will start macrobid; dwp to increase fluids and RTO if increase in pain or fever or other changes occur. Hypertensive disorder 38 482841 I10 stopped lisinopril previously , elevated today as she was rushing, cont checking bp at home, if still elevated, take lisinopril cleared by cardiology for her upcoming knee replacemen t surgery Obesity 975998440 E66.8 cont working on weight loss Pre-surger y evaluation 534335048 Z01.818 needing pre op clearance, was cleared by cardio on 06/30/24lab s and testing all done by surgeon, Feeling stressed 8996004 06 Z73.3 lots of stress at homept c/o lack of patience and easily angered, dealing with a situation with adoptive childrendw p medication options, will start effexor -improved on 37.5, , denies SI or HI, daughter has moved back but is not living in the home; feels she is handling the situation much better than before med; will cont this dose R/B/A/SE of antidepres jazlyn medication discussed such as gastrointe stinal s/e, mood irritabili ty, Suicidal ideation, risk of heidi. Call with concerns and questions. Compliance with medication s and follow up care strongly recommende d. Call 911 or ER for crises. [id number] MD Ishaan Richmond (Adult Med) [address] [place] [address] 10/26/2024 09:05:14 10/27/2024 15:06:16 Hypertensive disorder 72594080 I10 cont checking bp at homestill taking lasix 20 mg- dwp to cut in half and see if improved urinary issues Obesity 467030761 E66.9 cont working on weight loss History of rheumatoid arthritis 541440765 Z87.39 cont with rheumatolo gist as planned,cu rrently on hydroxychl oroquine and methotrexa te Feeling stressed 8113771 06 Z73.3 lots of stress at homept c/o lack of patience and easily angered, dealing with a situation with adoptive childrendw p medication options, will start effexor -improved on 37.5, , denies SI or HI, daughter has moved back but is not living in the home; feels she is handling the situation much better than before med; will cont this dose R/B/A/SE of antidepres jazlyn medication discussed such as gastrointe stinal s/e, mood irritabili ty, Suicidal ideation, risk of heidi. Call with concerns and questions. Compliance with medication s and follow up care strongly recommende d. Call 911 or ER for crises. Mass of lower limb 75213 7000 R22.43 hard nodules/vida mps to steven thighs, has had for years but worsening since lost weight, recently sat down and felt it rupture and it was burning, will refer to specialist Recurrent urinary tract infection 205223681 N39.0 still cont abx [id number] MD Ishaan Richmond (Adult Med) [address] [place] [address] 11/16/2024 11:36:42 11/19/2024 10:16:58 Dysuria 18373753 R30.0 urine dip pos leuk, will send for culture and notify pt if abx change needed, will start macrobid; dwp to increase fluids and RTO if increase in pain or fever or other changes occur. Administra tion of influenza vaccine 54861266 Z23 [id number] MD Ishaan Richmond (Adult Med) [address] [place] [address] 11/29/2024 14:00:45 11/30/2024 09:02:01 Administration of SARS-CoV-2 mRNA vaccine 4444818863 Z23 [id number] Mary churchill, MD [facility] (Adult Med) [address] [place] [address] 01/31/2025 09:00:33 02/02/2025 16:58:45 Hypertensive disorder 41173494 I10 cont checking bp at hom[facility]ill taking lasix 20 mg- dwp to cut in half and see if improved urinary issues Obesity 032075906 E66.9 cont working on weight loss History of rheumatoid arthritis 774986783 Z87.39 cont with rheumatolo gist as planned,cu rrently on hydroxychl oroquine and methotrexa teinfusion s moved to q 6 weeks Feeling stressed 1650788 06 Z73.3 lots of stress at homept c/o lack of patience and easily angered, dealing with a situation with adoptive childrendw p medication options, will start effexor -improved on 37.5, , denies SI or HI, daughter has moved back but is not living in the home; feels she is handling the situation much better than before med; will cont this dose R/B/A/SE of antidepres jazlyn medication discussed such as gastrointe stinal s/e, mood irritabili ty, Suicidal ideation, risk of heidi. Call with concerns and questions. Compliance with medication s and follow up care strongly recommende d. Call 911 or ER for crises. Mass of lower limb 81126 7000 R22.43 hard nodules/vida mps to steven thighs, has had for years but worsening since lost weight, recently sat down and felt it rupture and it was burning,clinton s been seen by plastics, planning for possible surgery [id number] Mary churchill, MD [facility] (Adult Med) [address] [place] [address] 06/15/2025 15:02:33 06/17/2025 15:35:33 Hypertensive disorder 21188238 I10 cont checking bp at homestill taking lasix 20 mg- dwp to cut in half and see if improved urinary issues History of rheumatoid arthritis 160835586 Z87.39 cont with rheumatolo gist as planned,cu rrently on hydroxychl oroquine and methotrexa teinfusion s moved to q 6 weeks Feeling stressed 0355401 06 Z73.3 lots of stress at homept c/o lack of patience and easily angered, dealing with a situation with adoptive childrendw p medication options, will start effexor -improved on 37.5, , denies SI or HI, daughter has moved back but is not living in the home; feels she is handling the situation much better than before med; will cont this dose R/B/A/SE of antidepres jazlyn medication discussed such as gastrointe stinal s/e, mood irritabili ty, Suicidal ideation, risk of heidi. Call with concerns and questions. Compliance with medication s and follow up care strongly recommende d. Call 911 or ER for crises. Obese class I [id number] 49371 E66.811 3342281490 cont working on weight loss Spasm of u rinary bladder 392206044 N32.89 290833 frequent dysuria, pt would like referral to urology; issues with incontinen ce in past but improved slightly with weight loss Health Concerns Section Related Observation LastModified by Organization Detai ls LastModified Time None Recorded Concern Status LastModified by Organization Details LastModified Time None Recorded Advance Directives Directive N: Payers Insurance Date Sequence Insurance Name Policy Number Policy Luo Covered Member ID Luo Member ID Guarantor Name 09/05/2025 1 [facility] - DOS ON OR AFTER 21 (MEDICAID REPLACEMENT - HMO) Carlito Abbott [id number] Carlito Abbott 05/31/2022 SLIDING FEE SCHEDULE - DISCOUNT Carlito Abbott 06/06/2021 2 *SELF PAY* Tr lydia Abbott 06/06/2021 1 [facility] - DOS PRIOR TO 2021 (MEDICAID REPLACEMENT - HMO) Carlito Abbott [id number] Carlito Eduard Notes Date Note Type Note Provider Name and Address Organization Details Recorded Time 10/26/2024 text/html since loosing weight- noticed more hard lumps on her legs. Thinks she has Lipedema and wants to know how to get rid of them. thinks she sat on one while on the toilet and it popped, states one of them burst and her leg was burning. still having on and off dysuria- has 2 days of abx left Carmel Hilton APN, FNP-C Attn: Accounting[address] [facility], [place], [address], [facility] 10/26/2024 10:00:19 11/16/2024 text/html ROS as noted in the HPI finished abx which helped but having same sx again. dysuria, pressure that started friday Carmel Hilton APN, MOLDING PLASTERER-C Attn: Accounting[address] [facility], [place], [address], [place] [facility] 11/16/2024 12:42:52 01/31/2025 text/html ROS as noted in the HPI med follow up- feeling better. Feels less anxiousdenies SI or HI, no side effects, sleep is betterhtn- stable since loosing weight- noticed more hard lumps on her legs. Thinks she has Lipedema and wants to know how to get rid of them. thinks she sat on one while on the toilet and it popped, states one of them burst and her leg was burning.Saw plastic surgeon- states he was trying to do more surgery than what pt was wanting. Carmel Hilton APN, FNP-C Attn: Accounting, [address] [facility], [place], [address], [facility] 02/02/2025 10:31:56 06/15/2025 text/html med follow up- feeling better. Feels less anxiousdenies SI or HI, no side effects, sleep is betterhtn- stableurinary issues increasing, culture still pending Carmel Hilton APN, MOLDING P[employer]ERER-C Attn: Accounting[address] [facility], [place], [address], [place] [facility] 06/15/2025 16:06:58 OBGyn Episode No OBEpisode recorded.
--- OUTSIDE RECORDS SUMMARY | 2025-09-20 08:26 | XMS_ITS | Clinical Summary ---
Author Organization [facility] Address [address] [place] [address] Phone Care Team Providers Care Export Freight Specialist Name Role Phone Bernadine, Carmel WOLFE CNP Primary Care Provider [phone] Social History Tobacco Use Types Packs/Day Years Used Date Smoking Tobacco: Never Assessed Comments No Sex and Gender Information Value Date Recorded Sex Assigned at Not on file Legal Sex Female 1:10 PM CDT Gender Identity Not on file Sexual Orientation Not on file Plan of Treatment Health Maintenance Due Date Last Done Comments Hepatitis C Virus (HCV) Screening 1968 Hepatitis B Immunization (1 of 3 - 19+ 3-dose series) 1987 Pap Smear 1989 Cervical Cancer Screening (CCS) 1998 HPV/Cotest 1998 Cologuard 2013 Colonoscopy 2013 Colorectal Cancer Screening 2013 Immunochemical Fecal Occult Blood 2013 Pneumococcal Immunization (5 0+ years) (1 of 1 - PCV) 2018 Zoster Immunization (1 of 2) 2018 Influenza Immunization (#1) 2025 SARS-COV-2 Immunization (2024- season) 2025 11/02/2021, 02/03/2021 Respiratory Syncytial Virus (RSV) Immunization (Adult) (1 - 1-dose 75+ series) 2043 DTaP/Tdap/Td Immunization Discontinued 05/06/2007 TdaP Immunization Completed 05/06/2007 Mammogram Discontinued 04/15/2019 Human Papillomavirus (HPV) Immunization Aged Out No longer eligible based on patient's age to complete this topic Meningococcal Immunization (ACWY) Aged Out No longer eligible based on patient's age to complete this topic Rotavirus Immunization Aged Out No lo nger eligible based on patient's age to complete this topic Procedures Procedure Name Priority Date/Time Associated Diagnosis Comments GEOFFREY SCREENING BILATERAL DIGITAL W CAD Routine 04/15/2019 11:11 AM CDT Encounter for screening mammogram for malignant neoplasm of breast from Last 3 Months or Most Recently Relevant to Health Maintenance Results * GEOFFREY SCREENING BILATERAL DIGITAL W CAD (04/15/2019 11:11 AM CDT) Anatomical Region Laterality Modality breast Bilateral Mammography 04/15/2019 10:3 7 AM CDT Narrative 04/15/2019 3:48 PM CDT - GEOFFREY SCREENING BILATERAL DIGITAL W CAD BILATERAL DIGITAL SCREENING MAMMOGRAM WITH CAD WITH MEDIOLATERAL OBLIQUE CRANIOCAUDAL: 04/15/2019 The study was acquired using digital technology and interpreted from soft copy. Current study was also evaluated with ICAD version 7.2. CLINICAL: Baseline screening. Additional images taken in effort to obtain adequate breast tissue due to the patient's hypersthenic body habitus. Patient has no complaints. No personal history of cancer. No family history of breast cancer. COMPARISONS: No prior exams were available for comparison. BREAST TISSUE:The tissue of both breasts is predominantly fatty. FINDINGS: There is a mass in the left breast at 12 o'clock anterior depth. No other significant masses, calcifications, or other findings are seen in either breast. IMPRESSION: BI-RAD 0 ADDITIONAL IMAGING EVALUATION NEEDED The mass in the left breast needs additional evaluation. An immediate follow-up is recommended. The patient has been or will be contacted. Electronically signed by: Bryon jonas/samy:04/15/2019 15:22:59 Cleaner Carpet [employer]stery: Shannon Murrieta (Gio), [facility] letter sent: Additional Imaging Reading location: [facility] BI-RADS: 0 Additional Imaging Evaluation Needed Procedure Note Bryon Barajas MD - 04/15/2019 - GEOFFREY SCREENING BILATERAL DIGITAL W CAD BILATERAL DIGITAL SCREENING MAMMOGRAM WITH CAD WITH MEDIOLATERAL OBLIQUE CRANIOCAUDAL: 04/15/2019 The study was acquired using digital technology and interpreted from soft copy. Current study was also evaluated with ICAD version 7.2. CLINICAL: Baseline screening. Additional images taken in effort to obtain adequate breast tissue due to the patient's hypersthenic body habitus. Patient has no complaints. No personal history of cancer. No family history of breast cancer. COMPARISONS: No prior exams were available for comparison. BREAST TISSUE:The tissue of both breasts is predominantly fatty. FINDINGS: There is a mass in the left breast at 12 o'clock anterior depth. No other significant masses, calcifications, or other findings are seen in either breast. IMPRESSION: BI-RAD 0 ADDITIONAL IMAGING EVALUATION NEEDED The mass in the left breast needs additional evaluation. An immediate follow-up is recommended. The patient has been or will be contacted. Electronically signed by: Bryon jonas/samy:04/15/2019 15:22:59 Cleaner [employer]pet [employer]stery: Shannon Murrieta (R), [facility] letter sent: Additional Imaging Reading location: [facility] BI-RADS: 0 Additional Imaging Evaluation Needed Carmel Colindres APRN, CNP IMG MAMMO ORDERABLES Elizabeth l Result from Last 3 Months or Most Recently Relevant to Health Maintenance Insurance [employer] Care Teams Export Freight Specialist Relationship Specialty Start Date End Date Carmel Colindres APRN, CNP PCP - General Family Medicine 04/09/19
--- OUTSIDE RECORDS SUMMARY | 2025-09-20 08:26 | XMS_ITS | Encounter Summary ---
Author Organization [facility] Address [address] [place] [address] Care Team Providers Care Provider Contracting Consultant Name Role Phone Andriy Colindresstepan DEWITT Unavailable [phone] Carmel Colindres Primary Care Provider + [phone] Nidhi Stratton MD Unavailable Encounter Details Date Type Department Care Team (Late Contact Info) Description 08/25/2025 Results Follow-Up [facility] - Rheumatology [address] [place] [id number] Nidhi Stratton MD [address] [place] [phone] Social History Tobacco Use Types Packs/Day Years Used Date Smoking Tobacco: Former Cigarettes Q uit: 12/01/2000 Smokeless Tobacco: Never Alcohol Use Standard Drinks/Week Comments Yes 0 (1 standard drink = 0.6 oz pur e alcohol) rarely PHQ-2 Answer Date Recorded Patient Health Questionnaire-2 Score 0 08/23/2025 Comments No Sex and Gender Information Value Date Recorded Sex Assigned at Female 05/08/2021 9:19 AM CDT Legal Sex Female 1:20 PM CDT Gender Identity Female 05/08/2021 9:19 AM CDT Sexual Orientation Not on file documented as of this encounter Plan of Treatment Upcoming Encounters Date Type Department Care Team (Late Contact Info) Description 10/21/2025 1:30 PM PLACEMENT DIRECTOR Appointment [facility] - Rheumatology [address] [place] [id number] 12/07/2025 1:00 PM PLACEMENT DIRECTOR Appointment [facility] - Rheumatology [address] [place] [phone] 02/10/2026 3:00 PM CDT Office Visit [facility] - Rheumatology [address] [place], [place] [address] [address] Nidhi Stratton MD [address] [facility] [address] documented as of this encounter Visit Diagnoses Not on filedocumented in this encounter Care Teams Provider Contracting Consultant Relationship Specialty Start Date End Date Carmel Colindres APRN-BROOKE [address] [place] [address] [place] [phone] PCP - General Nurse Practitioner Family 10/15/19 Carmel Colindres APRN-CNP [address] [place] [address] Nurse Practitioner Family 10/15/19 Nidhi Stratton MD [address] [facility] [place] [phone] Research Mechanic Rheumatology 10/16/23 documented as of this encounter
--- OUTSIDE RECORDS SUMMARY | 2025-09-20 08:26 | XMS_ITS | Clinical Summary ---
Author Organization [facility] Address [address] [address] Care Team Providers Care Folder Stitcher Operator Name Role Phone Bernadine Carmel DEWITT Unavailable [phone] Carmel Colindres Primary Care Provider [phone] Nidhi Stratton MD Unavailable Source Comments [facility],non-owned Affiliates and Associated Physician Practices is amultiple site organization consisting of ambulatory clinics and hospital sitesin [place], [place], [place] and [place]. This disclosure is being madepursuant to the Care Everywhere program and may not contain all information available regarding this patient. Last updated 18.[facility] Allergies Active Allergy Reactions Criticality Noted Date Comments Sulfasalazine Rash Medium 08/28/2020 Medications * Be aware that medications may not be up to date on this document. Alwaysverify current medications with the patient. loratadine (CLARITIN) 10 MG tablet Take 1 (one) tablet by mouth once daily as needed 0 10/01/20 19 Active NORLYDA 0.35 MG tablet Take 1 (one) tablet by mouth once daily 2 09/21/20 19 Active triamcinolone acetonide (KENALOG) 0.1 % cream Apply to affected area as needed 3 09/27/20 19 Active furosemide (LASIX) 20 MG tablet Take 1 (one) tablet by mouth once daily 2 10/01/20 19 Active FEROSUL 325 (65 Fe) MG tablet Take 1 (one) tablet by mouth once daily 3 09/27/20 19 Active inFLIXimab-abd a (Renflexis) injection 700 (seven hundred) mg by Intravenous route Every 6 Weeks Active calcium-vitami n D (Os-Jesse 500 + D) 500-200 mg-unit tablet Take 1 (one) tablet by mouth 3 times daily Active vitamin A 3 MG (81370 UT) capsule Take 25,000 Units by mouth once daily Active VITAMIN K PO Take 6,090 mcg by mouth once daily Active vitamin D, ergocalciferol , (Drisdol) 1.25 MG (43643 UT) capsule Take 1 (one) capsule by mouth once daily Active famotidine (Pepcid) 20 MG tablet Take 1 (one) tablet by mouth 2 times daily 09/25/20 23 Active vitamin E (Tocopheryl) 100 UNIT capsule Take 268 Units by mouth once daily Active ascorbic acid (Vitamin C) 250 MG tablet Take 4 (four) tablets by mouth once daily Active cyanocobalamin (Vitamin B-12) 1000 MCG tablet Take 2.5 (two and one-half) tablets by mouth every 2 days Active Magnesium 100 MG Take 700 mg by mouth once daily Active hydroxychloroq uine (Plaquenil) 200 MG tabletIndicati ons:Inflammato ry arthritis TAKE 1 TABLET BY MOUTH TWICE DAILY 180 tablet 3 07/26/20 24 Active venlafaxine XR 24hr (Effexor XR) 37.5 MG capsule Take 1 (one) capsule by mouth once daily 06/30/20 24 Active diclofenac sodium (Voltaren Arthritis Pain) 1 % gel Apply 2 (two) g to affected area 4 times daily Active predniSONE (Deltasone) 5 MG tabletIndicati ons:Seropositi ve rheumatoid arthritis (HCC) Take 1 to 2 tablets by mouth daily as needed. 20 tablet 11/19/20 24 Active Additional Information Patient not taking.Reported on 08/23/2025 Cranberry-Tricia min C (AZO CRANBERRY URINARY TRACT PO) Take 2 tablets by mouth 2 times daily Active zinc gluconate 50 MG tablet Take 1 (one) tablet by mouth once daily Active folic acid 400 MCG tablet Take 1 (one) tablet by mouth once daily Active estradiol 0.0125% vaginal cream Insert 1 (one) g into the vagina at bedtime Twice a week on Friday and 04/27/20 25 Active sulfamethoxazo le-trimethopri m (Bactrim; Septra) 400-80 MG tablet TAKE 1 TABLET BY MOUTH ONCE DAILY AT BEDTIME. START AFTER FINISHING SMZ-TMP 800/160 MG ANTIBIOTIC FOR SUPPRESSION 07/26/20 25 Active Multiple Vitamins-Administrative Liaison als (CertaVite/Ant ioxidants) TABS Take 2 (two) tablets by mouth once daily 08/09/20 25 Active tacrolimus (Protopic) 0.1 % ointmentIndica tions:Blephari tis of both eyes, unspecified eyelid, unspecified type,Facial rash Apply to affected area 2 times daily 30 g 08/23/20 25 Active Additional Information Patient not taking.Reason: Other (Hasnt started), Reported on 09/07/2025 tiZANidine (Zanaflex) 4 MG tabletIndicati ons:Chronic low back pain without sciatica, unspecified back pain laterality,Inf lammatory arthritis TAKE 1 TABLET BY MOUTH AT BEDTIME 90 tablet 09/13/20 25 Active multivitamin daily tablet Take 1 (one) tablet by mouth daily with food 025 Discontinued(L ist Clean-Up) D-Mannose 500 MG CAPS Take 2 tablets by mouth 2 times daily 025 Discontinued(L ist Clean-Up) tiZANidine (Zanaflex) 4 MG tabletIndicati ons:Chronic low back pain without sciatica, unspecified back pain laterality,Inf lammatory arthritis TAKE 1 TABLET BY MOUTH AT BEDTIME 90 tablet 1 01/27/20 25 025 Discontinued Active Problems Problem Noted Date Diagnosed Date Morbid (severe) obesity due to excess calories 1 09/30/2023 Hyperparathyroidism 06/02/2023 09/30/2023 Psoriatic arthritis 02/25/2022 Seropositive rheumatoid arthritis 02/25/2022 Hypertension 02/03/2016 09/30/2023 Overview (09/30/2023): Hypertension Last Assessment & Plan: 1. Chronic, well controlled 2. Discussed her routine use of her CPAP can help improve her blood pressure 3. She will continue lisinopril and furosemide Encounters Date Type Department Care Team Description 09/13/2025 Refill [facility] - Rheumatology [address] [place] [address] Nidhi Stratton MD Refill Request 09/07/2025 1:00 PM CDT - 09/07/2025 11:59 PM CDT Hospital Encounter [facility] Rheumatology [address] [place] [phone] Nidhi Stratton MD Discharge Disposition: Home or Self Care 09/07/2025 Travel 08/25/2025 Results Follow-Up [facility] Rheumatology [address] [place] [address] Nidhi Stratton MD 08/23/2025 11:40 AM CDT Office Visit [address] [address] Nidhi Stratton MD Psoriatic arthritis (HCC) (Primary Dx); Blepharitis of both eyes, unspecified eyelid, unspecified type; Facial rash 08/16/[address] [address] Nidhi Stratton MD Follow-up 07/12/2025 11:00 AM CDT - 07/12/2025 11:59 PM CDT Hospital Encounter [address] [address] Nidhi Stratton MD Rheumatology Discharge Disposition: Home or Self Care 07/12/2025 Travel from Last 3 Months Social History Tobacco Use Types Packs/Day Years Used Date Smoking Tobacco: Former Cigarettes Q uit: 12/01/2000 Smokeless Tobacco: Never Tobacco Cessation:Counseling Given: Not Answered Alcohol Use Standard Drinks/Week Comments Yes 0 (1 standard drink = 0.6 oz pur e alcohol) rarely PHQ-2 Answer Date Recorded Patient Health Questionnaire-2 Score 0 08/23/2025 Comments No Sex and Gender Information Value Date Recorded Sex Assigned at Female 05/08/2021 9:19 AM CDT Legal Sex Female 1:20 PM CDT Gender Identity Female 05/08/2021 9:19 AM CDT Sexual Orientation Not on file Last Filed Vital Signs Vital Sign Reading Time Taken Comments Blood Pressure 119/61 09/07/2025 3:40 PM CDT Pulse 61 09/07/2025 3:40 PM CDT Temperature 36.4 C (97.6 F) 09/07/2025 1:26 PM CDT Respiratory Rate 16 08/23/2025 11:51 AM CDT Oxygen Saturation 98% 03/29/2025 11:37 AM CDT Inhaled Oxygen Concentration - - Weight 84.6 kg (186 lb 6.4 oz) 09/07/2025 1:26 P M CDT Height 165.1 cm (5' 5) 11/19/2024 10:32 AM TELESALES REPRESENTATIVE Body Mass Index 31.02 11/19/2024 10:32 AM TELESALES REPRESENTATIVE Plan of Treatment Upcoming Encounters Date Type Department Care Team (Late st Contact Info) Description 10/21/2025 1:30 PM TELESALES REPRESENTATIVE Appointment [facility] - Rheumatology [address] [place] [address] 12/07/2025 1:00 PM TELESALES REPRESENTATIVE Appointment [facility] Rheumatology [address] [place] [phone] 02/10/2026 3:00 PM CDT Office Visit [address] [address] Nidhi Stratton MD [address] [place] [phone] Health Maintenance Due Date Last Done Comments COLON MONITORING 1968 COLONOSCOPY - COLON CA SCREENING 1968 CT COLONOGRAPHY - COLON CA SCREENING 1968 FLEX SIG - COLON CA SCREENING 1968 HIV SCREENING 1983 DTAP/TDAP/TD VACCINES (1 - Tdap) 1987 HEPATITIS B VACCINE (1 of 3 - 19+ 3-dose series) 1987 PAP SMEAR 1989 PNEUMOCOCCAL VACCINE 50+ (1 of 1 - PCV) 2018 ZOSTER VACCINE (1 of 2) 2018 FIT - COLON CA SCREENING 04/12/2020 04/12/2019 MAMMOGRAM 04/15/2021 04/15/2019 COVID-19 VACCINE ( season) 2025 10/10/2022, 05/04/2022, 11/02/2021, Additional history exists INFLUENZA VACCINE (#1) 2025 4, 08/28/2023, 11/11/2022, Additional history exists COLOGUARD (AGES 45-75) - COLON CA SCREENING 12/12/2026 12/12/2023, 11/08/2020 Colorectal Cancer Screening 12/12/2026 LIPID TESTING 01/23/2028 01/23/2023 SCREENING FOR DIABETES 08/23/2028 5, 05/25/2025, 04/22/2025, Additional history exists DEPRESSION SCREENING Completed 03/29/2025, 11/19/2024, 01/31/2023, Additional history exists HEPATITIS C SCREENING Completed 08/23/2025 , 09/30/2023, 02/21/2021 HIB VACCINE Aged Out No longer eligi ble based on patient's age to complete this topic HPV VACCINE Aged Out No longer eligi ble based on patient's age to complete this topic MENINGOCOCCAL (Group B) VACCINE SHARED DECISION-MAKING Aged Out No longer eligible based on patient's age to complete this topic MENINGOCOCCAL GROUPS A/C/Y/W VACCINE Aged Out No longer eligible based on patient's age to complete this topic Procedures Procedure Name Priority Date/Time Associated Diagnosis Comments HEPATITIS SCREEN ACUTE ([facility]) Routine 08/23/2025 12:34 PM CDT Psoriatic arthritis (HCC) QUANTIFERON TB-GOLD Routine 08/23/2025 1 2:34 PM CDT Psoriatic arthritis (HCC) C-REACTIVE PROTEIN Routine 08/23/2025 12 :34 PM CDT Psoriatic arthritis (HCC) ERYTHROCYTE SEDIMENTATION RATE Routine 08/23/2025 12:34 PM CDT Psoriatic arthritis (HCC) COMPREHENSIVE METABOLIC PANEL Routine 08/23/2025 12:34 PM CDT Psoriatic arthritis (HCC) CBC W AUTO DIFFERENTIAL Routine 08/23/2025 12:34 PM CDT Psoriatic arthritis (HCC) OCCULT BLOOD FECES FIT IMMUNOASSAY Routine 04/12/2019 from Last 3 Months or Most Recently Relevant to Health Maintenance Results * HEPATITIS SCREEN ACUTE ([facility]) (08/23/2025 12:34 PM CDT) Hepatitis A Virus Antibody IgM Negative Negative [facility] INSURANCE BILL Comment: A negative anti-HAV IgM result suggests no recent or current HAV infection. Hepatitis B Virus Surface Antigen Negative Negative [facility] INSURANCE BILL Hepatitis B Core Virus Antibody IgM Negative Negative [facility] INSURANCE BILL Hepatitis C Antibody Non Reactive Non Reactive [facility] INSURANCE BILL Comment: Performed at: [address] [place] [id number] Dry Box Operator: Trevor Ellis PhD, Phone: [phone] Interpretation Comment [facility] INSURANCE BILL Comment: Not infected with HCV unless early or acute infection is suspected (which may be delayed in an immunocompromised individual), or other evidence exists to indicate HCV infection. Blood BLOOD SPECIMEN / Unknown 08/23/2025 12:34 PM CDT 08/23/2025 Narrative [facility] INSURANCE BILL - 08/24/2025 8:12 AM CDT Performed at: [address] [id number] Dry Box Operator: Trevor Ellis PhD, Phone: [phone] Nidhi Stratton MD LAB - CHEMISTRY ORDERABLES Final Result [facility] INSURANCE BILL [address] [place] [address] * C-REACTIVE PROTEIN (08/23/2025 12:34 PM CDT) Pathologist [facility] C-Reactive Protein <1 0 - 10 mg/L [facility] INSURANCE BILL Blood BLOOD SPECIMEN / Unknown 08/23/2025 12:34 PM CDT 08/23/2025 Narrative [facility] INSURANCE BILL - 08/24/2025 11:11 AM CDT Performed at: [address] [id number] Dry Box Operator: Trevor Ellis PhD, Phone: [phone] Nidhi Stratton MD LAB - CHEMISTRY ORDERABLES Final Result [facility] INSURANCE BILL [address] [place] [address] * QUANTIFERON TB-GOLD (08/23/2025 12:34 PM CDT) [facility] QuantiFERON Incubation Incubation performed. [facility] INSURANCE BILL QuantiFERON-TB Gold Plus Negative Negative [facility] INSURANCE BILL Comment: No response to M tuberculosis antigens detected. Infection with M tuberculosis is unlikely, but high risk individuals should be considered for additional testing (ATS/IDSA/CDC Clinical Practice Guidelines, 2017). The reference range is an Antigen minus Nil result of <0.35 IU/mL. Chemiluminescence immunoassay methodology Performed at: [address] [place] [id number] Dry Box Operator: Trevor Ellis PhD, Phone: [phone] QuantiFERON Criteria Comment [facility] INSURANCE BILL Comment: QuantiFERON-TB Gold Plus is a qualitative indirect test for M tuberculosis infection (including disease) and is intended for use in conjunction with risk assessment, radiography, and other medical and diagnostic evaluations. The QuantiFERON-TB Gold Plus result is determined by subtracting the Nil value from either TB antigen (Ag) value. The Mitogen tube serves as a control for the test. QuantiFERON TB1 Ag Value 0.04 IU/mL [facility] INSURANCE BILL QuantiFERON TB2 Ag Value 0.05 IU/mL [facility] INSURANCE BILL QuantiFERON Nil Value 0.04 IU/mL [facility] INSURANCE BILL QuantiFERON Mitogen Value >10.00 IU/mL [facility] INSURANCE BILL Blood BLOOD SPECIMEN / Unknown 08/23/2025 12:34 PM CDT 08/23/2025 Narrative [facility] INSURANCE BILL - 08/25/2025 9:08 PM CDT Performed at: [address] [place] [id number] Dry Box Operator: Trevor Ellis PhD, Phone: [phone] Nidhi Stratton MD LAB - CHEMISTRY ORDERABLES Final Result [facility] INSURANCE BILL [address] [place] [address] * ERYTHROCYTE SEDIMENTATION RATE (08/23/2025 12:34 PM CDT) Erythrocyte Sedimentation Rate Westergren 5 0 - 40 mm/hr [facility] INSURANCE BILL Blood BLOOD SPECIMEN / Unknown 08/23/2025 12:34 PM CDT 08/23/2025 Narrative [facility] INSURANCE BILL - 08/24/2025 7:10 AM CDT Performed at: [address] - [address] [id number] Dry Box Operator: Trevor Ellis PhD, Phone: [phone] Nidhi Stratton MD LAB - HEMATOLOGY ORDERABLES Elizabeth l Result Performing Organization Address [facility] Co de Phone Number [facility] INSURANCE BILL [address] [place] [address] * CBC WITH DIFFERENTIAL (08/23/2025 12:34 PM CDT) Pathologist [facility] WBC 4.0 3.4 - 10.8 x10E3/uL [facility] INSURANCE BILL RBC 4.18 3.77 - 5.28 x10E6/uL [facility] INSURANCE BILL Hemoglobin 13.2 11.1 - 15.9 g/dL [facility] INSURANCE BILL Hematocrit 40.1 34.0 - 46.6 % [facility] INSURANCE BILL MCV 96 79 - 97 fL [facility] INSURANCE BILL MCH 31.6 26.6 - 33.0 pg [facility] INSURANCE BILL MCHC 32.9 31.5 - 35.7 g/dL [facility] INSURANCE BILL RDW 11.8 11.7 - 15.4 % [facility] INSURANCE BILL Platelet Count 186 150 - 450 x10E3/uL [facility] INSURANCE BILL Granulocytes % 42 Not Estab. % [facility] INSURANCE BILL Lymphocytes % 42 Not Estab. % [facility] INSURANCE BILL Monocytes % 12 Not Estab. % [facility] INSURANCE BILL Eosinophils % 3 Not Estab. % [facility] INSURANCE BILL Basophils % 1 Not Estab. % [facility] INSURANCE BILL Granulocytes Absolute 1.7 1.4 - 7.0 x10E3/uL [facility] INSURANCE BILL Lymphocytes Absolute 1.7 0.7 - 3.1 x10E3/uL [facility] INSURANCE BILL Monocytes Absolute 0.5 0.1 - 0.9 x10E3/uL [facility] INSURANCE BILL Eosinophils Absolute 0.1 0.0 - 0.4 x10E3/uL [facility] INSURANCE BILL Basophils Absolute 0.1 0.0 - 0.2 x10E3/uL [facility] INSURANCE BILL Immature Granulocytes 0 Not Estab. % [facility] INSURANCE BILL Immature Granulocytes Absolute 0.0 0.0 - 0.1 x10E3/uL [facility] INSURANCE BILL Blood BLOOD SPECIMEN / Unknown 08/23/2025 12:34 PM CDT 08/23/2025 Narrative [facility] INSURANCE BILL - 08/24/2025 7:10 AM CDT Performed at: [address] [place] [id number] Dry Box Operator: Trevor Ellis PhD, Phone: [phone] us Nidhi Stratton MD LAB - HEMATOLOGY ORDERABLES Elizabeth l Result [facility] INSURANCE BILL [address] [place] [address] * (ABNORMAL) COMPREHENSIVE METABOLIC PANEL (08/23/2025 12:34 PM CDT) [facility] Glucose 73 70 - 99 mg/dL [facility] INSURANCE BILL BUN 22 6 - 24 mg/dL [facility] INSURANCE BILL Creatinine 0.79 0.57 - 1.00 mg/dL [facility] INSURANCE BILL eGFR by CKD-EPI 87 >59 mL/min/1.7 3 [facility] INSURANCE BILL BUN/Creatinine Ratio 28(H) 9 - 23 [facility] INSURANCE BILL Sodium 139 134 - 144 mmol/L [facility] INSURANCE BILL Potassium 4.3 3.5 - 5.2 mmol/L [facility] INSURANCE BILL Chloride 103 96 - 106 mmol/L [facility] INSURANCE BILL CO2 24 20 - 29 mmol/L [facility] INSURANCE BILL Calcium 8.9 8.7 - 10.2 mg/dL [facility] INSURANCE BILL Protein Total 6.0 6.0 - 8.5 g/dL [facility] INSURANCE BILL Albumin 4.0 3.8 - 4.9 g/dL [facility] INSURANCE BILL Globulin Total 2.0 1.5 - 4.5 g/dL [facility] INSURANCE BILL Bilirubin Total 0.5 0.0 - 1.2 mg/dL [facility] INSURANCE BILL Alkaline Phosphatase 82 49 - 135 IU/L [facility] INSURANCE BILL Comment:Please note refere nce interval change AST 37 0 - 40 IU/L [facility] INSURANCE BILL ALT 49(H) 0 - 32 IU/L [facility] INSURANCE BILL Blood BLOOD SPECIMEN / Unknown 08/23/2025 12:34 PM CDT 08/23/2025 Narrative [facility] INSURANCE BILL - 08/24/2025 8:12 AM CDT Performed at: [address] [id number] Dry Box Operator: Trevor Ellis PhD, Phone: [phone] Nidhi Stratton MD LAB - CHEMISTRY ORDERABLES Final Result Performing Organization Address City/State/[facility] Co de Phone Number [facility] INSURANCE BILL [address] [place] [address] * OCCULT BLOOD FECES 1-3 IMMUNOASSAY (04/12/2019) Stool STOOL SPECIMEN / Unknown us Carmel Colindres CUP MACHINE OPERATOR-TOOLSMITH LAB - BODY FLUID ORDERABLE S Final Result from Last 3 Months or Most Recently Relevant to Health Maintenance Insurance [facility] Care Teams Folder Stitcher Operator Relationship Specialty Start Date End Date Carmel Colindres APRN-TOOLSMITH [address] [place] [address] PCP - General Nurse Practitioner Family 10/15/19 Carmel Colindres APRN-CNP [address] [place] [address] Nurse Practitioner Family 10/15/19 Nidhi Stratton MD [address] [place] [address] [employer] M[employer] [facility] Rheumatology 10/16/23
== END 2025-09-20 08:12 | disposition home or self-care (01) ==
LOC: ANHFOHIMG 08:13
PROVIDERS: PCP Nurse Practitioner Family; Visit Provider Nurse Practitioner Family
DX: Z12.31 Encounter for screening mammogram for malignant neoplasm of breast (principal)
CPT/HCPCS: 77063; 77067